=== PATIENT | female | born 1950 | race American Indian/Alaskan Native ===

== ENCOUNTER 2017-07-08 03:28 | Inpatient (IN) | payer MEDICARE, OTHER ==
--- NOTE | 2017-07-08 04:45 | Cat Scan Report ---
FINAL REPORT EXAM: CT HEAD/BRAIN WO CON HISTORY: FOUND ON FLOOR RT FACIAL DROOP TECHNIQUE: Routine axial imaging was obtained of the brain without IV contrast. There are no previous studies available for comparison. FINDINGS: There is mild generalized atrophy. There is no evidence of acute stroke or hemorrhage. There is diminished attenuation of the periventricular white matter compatible with chronic microvascular disease changes. The ventricular system is appropriate in size and is symmetric. The visualized sinuses are clear. The mastoid air cells are well pneumatized. IMPRESSION: Mild generalized volume loss with chronic ischemic white matter changes. No evidence of acute stroke or hemorrhage.
--- NOTE | 2017-07-08 04:54 | Cat Scan Report ---
FINAL REPORT EXAM: CT CERVICAL SPINE WO CON HISTORY: fall TECHNIQUE: Routine axial imaging was obtained of the cervical spine without IV contrast with sagittal and coronal reconstructions FINDINGS: There is very mild narrowing of the C6-C7 disc. The remaining disc heights and alignment appear normal. The canal size is normal. There is no evidence of fracture. The pre vertebral soft tissues and C1-C2 articulation do not show any acute changes. IMPRESSION: Very mild disc degeneration at the C6-C7 level. No acute injury.
[2017-07-08 05:03] LABS: Basophils % (Auto) 0.6 % (0.0-1.8); Eosinophils % (Auto) 0.4 % (0.0-4.3); Hematocrit 39.9 % (35.5-45.6); Hemoglobin 13.2 gm/dl (11.8-15.2); Mean Corpuscular HGB Conc 33 % (32-34); Mean Corpuscular Hemoglobin 30 pg (28-32); Mean Corpuscular Volume 89 fl (84-94); Platelet Count 201 K/mm3 (140-440); Red Blood Count 4.49 M/mm3 (3.65-5.03); Red Cell Distribution Width 13.9 % (13.2-15.2); White Blood Count 5.3 K/mm3 (4.5-11.0)
[2017-07-08] MEDS ORDERED: APRESOLINE IV ONE (05:05)
[2017-07-08] MEDS ORDERED: BABY ASPIRIN PO ONE (05:05)
[2017-07-08 05:13] LABS: INR 0.91 (0.87-1.13)
[2017-07-08 05:14] LABS: Partial Thromboplastin Time 26.3 Sec. (24.2-36.6)
[2017-07-08 05:21] LABS: Anion Gap 20 mmol/L; BUN/Creatinine Ratio 10; Blood Urea Nitrogen 9 mg/dL (9-20); Calcium 9.4 mg/dL (8.4-10.2); Carbon Dioxide 24 mmol/L (22-30); Chloride 101.7 mmol/L (98-107); Glucose 95 mg/dL (75-100); Potassium 3.2 mmol/L (3.6-5.0); Sodium 142 mmol/L (137-145)
--- NOTE | 2017-07-08 05:21 | Emergency Department Report ---
ED Neuro Deficit HPI - General Chief Complaint: Neuro Symptoms/Deficit Stated Complaint: POSSIBLE HIGH BLOOD SUGAR Time Seen by Provider: 07/08/17 04:47 Source: patient, family Mode of arrival: Wheelchair Limitations: Physical Limitation - History of Present Illness Initial Comments: Patient was found on the floor at 8 PM she did hit her head they said that she was has been slightly off with maybe weakness then around midnight she noticed no slurred speech and left arm droop with facial droop and weakness of the left leg. Patient has not been compliant with her BP meds she is following commands she is awake alert was stable airway initial blood pressure was 218/120. -: Gradual Location: left face, left arm Presenting Symptoms: Present: Weak/Paralyzed One Side Place: home - Related Data Allergies/Adverse Reactions: Allergies Allergy/AdvReac Type Severity Reaction Status Date / Time amoxicillin [From Amoxil] Allergy Unknown Verified 07/08/17 04:19 ED Review of Systems ROS: Stated complaint: POSSIBLE HIGH BLOOD SUGAR Other details as noted in HPI Comment: All other systems reviewed and negative Constitutional: denies: diaphoresis, fever, malaise Respiratory: denies: cough, orthopnea, shortness of breath, SOB with exertion, SOB at rest, stridor Cardiovascular: denies: chest pain, palpitations, dyspnea on exertion, edema, syncope Gastrointestinal: denies: abdominal pain, nausea, vomiting Musculoskeletal: denies: arthralgia Neurological: weakness Hematological/Lymphatic: denies: easy bruising ED Past Medical Hx - Past Medical History Previous Medical History?: Yes Hx Hypertension: Yes Hx Diabetes: Yes - Surgical History Past Surgical History?: No ED Neuro Physical Exam - General Limitations: Physical Limitation General appearance: alert, anxious Suspected Stroke: Yes - Head Head exam: Present: atraumatic, normocephalic - Eye Eye exam: Present: PERRL - ENT ENT exam: Present: normal exam, normal orophraynx - Neck Neck exam: Present: normal inspection. Absent: tenderness, meningismus - Respiratory Respiratory exam: Present: normal lung sounds bilaterally. Absent: respiratory distress, wheezes, rales, rhonchi, stridor, chest wall tenderness, accessory muscle use, prolonged expiratory - Cardiovascular Cardiovascular Exam: Present: regular rate, normal heart sounds. Absent: rubs, gallop - GI/Abdominal GI/Abdominal exam: Present: soft. Absent: distended, tenderness, guarding, mass , bruit, pulsatile mass - Extremities Exam Extremities exam: Present: normal inspection. Absent: pedal edema, calf tenderness - Back Exam Back exam: Present: normal inspection - Neurological Exam Neurological exam: Present: alert, motor sensory deficit - NIHSS Assessment Interval: Baseline 1a. Level of Consciousness: alert 1b. LOC Questions: answers 1 question correctly 1c. LOC Commands: performs tasks correctly 2. Best Gaze: normal 3. Visual: no visual loss 4. Facial Palsy: partial paralysis 5b. Motor Arm Right: no drift 5a. Motor Arm Left: drift 6a. Motor Leg Left: drift 6b. Motor Leg Right: no drift 7. Limb Ataxia: absent 8. Sensory: mild/moderate sensory loss 9. Best Language: no aphasia 10. Dysarthria: normal 11. Extinction/Inattention: no abnormality Total Score: 6 Stroke Severity: Moderate Stroke ED Course Vital Signs 07/08/17 04:26 Temperature 98.1 F Pulse Rate 82 Respiratory 20 Rate Blood Pressure 218/120 O2 Sat by Pulse 98 Oximetry - Lab Data Result diagrams: 07/08/17 04:45 Lab Results 07/08/17 07/08/17 Range/Units 03:57 04:45 WBC 5.3 (4.5-11.0) K/mm3 RBC 4.49 (3.65-5.03) M/mm3 Hgb 13.2 (11.8-15.2) gm/dl Hct 39.9 (35.5-45.6) % MCV 89 (84-94) fl MCH 30 (28-32) pg MCHC 33 (32-34) % RDW 13.9 (13.2-15.2) % Plt Count 201 (140-440) K/mm3 Lymph % (Auto) 18.9 (13.4-35.0) % [place] % (Auto) 5.3 (0.0-7.3) % Eos % (Auto) 0.4 (0.0-4.3) % Baso % (Auto) 0.6 (0.0-1.8) % Lymph # 1.0 L (1.2-5.4) K/mm3 [place] # 0.3 (0.0-0.8) K/mm3 Eos # 0.0 (0.0-0.4) K/mm3 Baso # 0.0 (0.0-0.1) K/mm3 Seg Neutrophils % 74.8 H (40.0-70.0) % Seg Neutrophils # 4.0 (1.8-7.7) K/mm3 POC Glucose 108 H (70-105) - EKG Data -: EKG Interpreted by Me EKG shows normal: sinus rhythm, ST-T waves (no acute ischemic changes) When compared to previous EKG there are: no significant change - Radiology Data Radiology results: report reviewed - Medical Decision Making Dr. Chawla evaluated patient in ED patient with left-sided weakness with no hemorrhage on CT. Hydralazine was given for elevated blood pressure asked was given patient will be admitted for further evaluation of CVA. The time of onset was outside the window of 3-4 hours that would possibly allow for TPA given the fact that her initial onset was approximately 8 PM on 1218. Patient will be admitted for further evaluation she does have good gag reflex at this time stable airway no chest pain and may laboratory studies are pending the oncoming hospitalist will admit the patient - Thrombolytic Inclusion/Exclusion Thrombolytic Exclusion Criteria: Onset of Symptoms Unknown, Symptom Onset > 3 Hours Critical care attestation.: If time is entered above; I have spent that time in minutes in the direct care of this critically ill patient, excluding procedure time. ED Disposition Clinical Impression: CVA (cerebral vascular accident) Disposition: OP ADMIT IP TO THIS HOSP Is pt being admited?: Yes Condition: Stable Time of Disposition: 05:37
[2017-07-08] MEDS ORDERED: TYLENOL PO PRN (05:22)
[2017-07-08] MEDS ORDERED: DULCOLAX PR PRN ×2 (05:22→08:01)
[2017-07-08] MEDS ORDERED: MILK OF MAGNESIA PO PRN ×2 (05:22→08:01)
[2017-07-08] MEDS: MORPHINE IV PRN ×3 (06:26→20:05)
--- NOTE | 2017-07-08 07:56 | History and Physical Report ---
History of Present Illness Date of examination: 07/08/17 Date of admission: 07/08/17 05:22 Chief complaint: Left-sided weakness, and slurred speech History of present illness: 66-year-old -[place] female with past medical history significant for hypertension not on any medication, abuse, marijuana abuse was presented to the emergency department for the complaints of left-sided weakness, slurred speech that started more than 4 and half hours before presentation. Patient's blood failure at presentation was 218/120. Patient was alert and oriented and able to protect her airways. Left-sided hemiplegia. No seizure episode. CT head done and negative for acute intracranial hemorrhage. Patient is tPA period. REVIEW OF SYSTEMS: GENERAL: no weight change, no fatigue, no fever HEAD: no head ache EYES: no blurry vision, no acute visual loss EARS: no hearing loss, no discharge, no earache NOSE: no stuffiness, no sneezing, no discharge MOUTH, THROAT AND NECK: no bleeding gums, no sore throat, no swollen neck CARDIAC: no palpitations, no dyspnea on exertion, no orthopnea, no PND, no edema , no chest pain RESPIRATORY: no shortness of breath, no wheeze, no cough, no sputum, no hemoptysis, no asthma GI: no decreased appetite, no nausea, no vomiting, no dysphagia, no diarrhea, no constipation, no abdominal pain URINARY: no change in frequency, no urgency, no polyuria, no hematuria, no incontinence MUSCULOSKELETAL: no muscle weakness, no pain, no joint stiffness NEUROLOGIC: As stated in the HPI HEMATOLOGIC: no anemia, no easy bruising SKIN: no rashes ENDOCRINE: no heat/cold intolerance, no polyuria, no polydipsia, no thyroid problems, no diabetes PSYCHIATRIC: no anxiety, no depression, no suicidal ideations Past History Past Medical History: hypertension Past Surgical History: hysterectomy, bowel surgery Social history: smoking (stated smoked too much cigarettes, marijuana), full code. denies: alcohol abuse, prescription drug abuse, IV drug use Family history: no significant family history Medications and Allergies Allergies Allergy/AdvReac Type Severity Reaction Status Date / Time amoxicillin [From Amoxil] Allergy Unknown Verified 07/08/17 04:19 Home Medications Medication Instructions Recorded Confirmed Last Taken Type amLODIPine [Norvasc] 10 mg PO DAILY 07/08/17 07/08/17 Unknown History Active Meds: Active Medications Acetaminophen (Tylenol) 650 mg PO Q4H PRN PRN Reason: Pain MILD(1-3)/Fever >100.5/SOSA Bisacodyl (Dulcolax) 10 mg [place] QDAY PRN PRN Reason: Constipation unrelieved by MOM Enoxaparin Sodium (Lovenox) 40 mg SUB-Q QDAY UMBERTO Dextrose/Sodium Chloride (D5ns) 1,000 mls @ 100 mls/hr IV DIRECT UMBERTO Magnesium Hydroxide (Milk Of Magnesia) 30 ml PO Q4H PRN PRN Reason: Constipation Morphine Sulfate (Morphine) 2 mg IV Q4H PRN PRN Reason: Pain, Moderate (4-6) Last Admin: 07/08/17 06:26 Dose: 2 mg Ondansetron HCl (Zofran) 4 mg IV Q8H PRN PRN Reason: N/V unrelieved by Reglan Oxycodone/Acetaminophen (Percocet 5/325) 1 tab PO Q6H PRN PRN Reason: Pain, Moderate (4-6) Exam - Physical Exam Narrative exam: Not in cardiopulmonary distress. The patient appeared well nourished and normally developed. Vital signs as documented. Head exam is unremarkable. No scleral icterus . Neck is without jugular venous distension, thyromegaly, or carotid bruits. Lungs are clear to auscultation. Cardiac exam reveals regular rate and Rhythm. First and second heart sounds normal. No murmurs, rubs or gallops. Abdominal exam reveals normal bowel sounds, no masses, no organomegaly and no aortic enlargement. Extremities left-sided hemiplegia. 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 - Constitutional Vitals: Temp Pulse Resp BP Pulse Ox 98.1 F 82 20 218/120 98 07/08/17 04:26 07/08/17 04:26 07/08/17 04:26 07/08/17 04:26 07/08/17 04:26 Results - Labs CBC & Chem 7: 07/09/17 06:55 07/09/17 06:55 Labs: Laboratory Last Values WBC 5.3 K/mm3 (4.5-11.0) 07/08/17 04:45 RBC 4.49 M/mm3 (3.65-5.03) 07/08/17 04:45 Hgb 13.2 gm/dl (11.8-15.2) 07/08/17 04:45 Hct 39.9 % (35.5-45.6) 07/08/17 04:45 MCV 89 fl (84-94) 07/08/17 04:45 MCH 30 pg (28-32) 07/08/17 04:45 MCHC 33 % (32-34) 07/08/17 04:45 RDW 13.9 % (13.2-15.2) 07/08/17 04:45 Plt Count 201 K/mm3 (140-440) 07/08/17 04:45 Lymph % (Auto) 18.9 % (13.4-35.0) 07/08/17 04:45 [place] % (Auto) 5.3 % (0.0-7.3) 07/08/17 04:45 Eos % (Auto) 0.4 % (0.0-4.3) 07/08/17 04:45 Baso % (Auto) 0.6 % (0.0-1.8) 07/08/17 04:45 Lymph # 1.0 K/mm3 (1.2-5.4) L 07/08/17 04:45 [place] # 0.3 K/mm3 (0.0-0.8) 07/08/17 04:45 Eos # 0.0 K/mm3 (0.0-0.4) 07/08/17 04:45 Baso # 0.0 K/mm3 (0.0-0.1) 07/08/17 04:45 Seg Neutrophils % 74.8 % (40.0-70.0) H 07/08/17 04:45 Seg Neutrophils # 4.0 K/mm3 (1.8-7.7) 07/08/17 04:45 PT 12.7 Sec. (12.2-14.9) 07/08/17 04:45 INR 0.91 (0.87-1.13) 07/08/17 04:45 APTT 26.3 Sec. (24.2-36.6) 07/08/17 04:45 Thrombin Time 16.4 Sec. (15.1-19.6) 07/08/17 04:45 Sodium 142 mmol/L (137-145) 07/08/17 04:45 Potassium 3.2 mmol/L (3.6-5.0) L 07/08/17 04:45 Chloride 101.7 mmol/L (98-107) 07/08/17 04:45 Carbon Dioxide 24 mmol/L (22-30) 07/08/17 04:45 Anion Gap 20 mmol/L 07/08/17 04:45 BUN 9 mg/dL (9-20) 07/08/17 04:45 Creatinine 0.9 mg/dL (0.8-1.5) 07/08/17 04:45 Estimated GFR > 60 ml/min 07/08/17 04:45 BUN/Creatinine Ratio 10 % 07/08/17 04:45 Glucose 95 mg/dL (75-100) 07/08/17 04:45 POC Glucose 108 (70-105) H 07/08/17 03:57 Hemoglobin A1c 5.3 % (4-6) 07/08/17 04:45 Calcium 9.4 mg/dL (8.4-10.2) 07/08/17 04:45 Troponin T < 0.010 ng/mL (0.00-0.029) 07/08/17 04:45 - Imaging and Cardiology CT Scan - head: report reviewed (no acute intracranial findings) MRI - head: image reviewed (right-sided acute subacute CVA) Assessment and Plan Assessment and plan: Acute CVA - Patient came more than 4hrs after symptom onset and didn't get tPA - CT head no hemorrhage, no acute intracranial findings - Bilateral carotid Doppler <50% stenosis - MRI/MRA was done MRI :Acute/subacute nonhemorrhagic infarct involving the right internal capsule posterior limb. Moderate chronic white matter microangiopathic changes. 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 -We'll do CTA for further characterization of his MRA finding - Case management consult, PT/OT consult - Patient is on statin, will start on aspirin - We will control blood pressure to below 185 /105 Hypertensive urgency - keep blood pressure below 185 and 105 Hypokalemia - Replete DVT prophylaxis - SCD, will restart his Lovenox after 48 hours Disposition -Admit to telemetry. Advance Directives: Yes Contraindication Mechanical VTE Prophylaxis: Treatment Not Indicated Reason for no VTE Prophylaxis: Medical contraindication Plan of care discussed with patient/family: Yes
[2017-07-08] MEDS ORDERED: SENOKOT PO PRN (08:01)
[2017-07-08] MEDS ORDERED: SODIUM CHLORIDE FLUSH SYRINGE 10 ML IV PRN (08:01)
[2017-07-08] MEDS ORDERED: PHENERGAN PR PRN (08:01)
[2017-07-08] MEDS ORDERED: ZOFRAN IV PRN (08:01)
[2017-07-08] MEDS ORDERED: REGLAN PO PRN (08:01)
[2017-07-08] MEDS ORDERED: APRESOLINE IV PRN (08:01)
[2017-07-08] MEDS ORDERED: PROVENTIL IH PRN (08:01)
[2017-07-08] MEDS: APRESOLINE IV PRN (08:41)
[2017-07-08] MEDS: PERCOCET 5/325 PO PRN (08:49)
[2017-07-08] MEDS: ZOFRAN IV PRN ×2 (09:16→17:47)
[2017-07-08] MEDS: LOVENOX SUB-Q SCH (09:17)
[2017-07-08] MEDS: ASPIRIN PO SCH (09:21)
[2017-07-08] MEDS: PEPCID PO SCH ×2 (09:21→21:00)
[2017-07-08] MEDS: COLACE PO SCH ×2 (09:21→21:00)
--- NOTE | 2017-07-08 13:59 | Magnetic Resonance Report ---
MRI BRAIN WITHOUT CONTRAST: 07/08/17 05:22:00 CLINICAL: Stroke. TECHNIQUE: Axial diffusion, T1, T2, FLAIR, gradient echo T2*, and sagittal T1 sequences on a 1.5 Danyelle magnet. FINDINGS: Normal ventricles and sulci. Focal restricted diffusion involves the right internal capsule posterior limb and measures approximately 1.7 x 0.9 cm. No other restricted diffusion. Moderate bilateral deep white matter and central great matter multifocal hyperintensities on FLAIR and T2. Prominent Virchow-Bharat spaces. No mass or mass effect. No hemorrhage, edema or extra-axial collection. Normal pituitary and optic chiasm. The brainstem and cerebellum are normal. Intact vascular flow voids. Normal sinuses. The orbits, and soft tissues are normal. Normal calvarium and skull base. IMPRESSION: Acute/subacute nonhemorrhagic infarct involving the right internal capsule posterior limb. Moderate chronic white matter microangiopathy.
--- NOTE | 2017-07-08 14:29 | Magnetic Resonance Report ---
MRA HEAD WITHOUT CONTRAST: 07/08/17 05:22:00 CLINICAL: Stroke. TECHNIQUE: Axial 3-D [id number] MR angiography of the [place] with review of axial source images. FINDINGS: Stenosis of the supraclinoid right ICA with poststenotic dilatation. No other significant stenosis. Symmetric blood flow in the anterior, middle and posterior cerebral arteries. Suspect an aneurysm either at the origin of the left NEON TUBE BENDER or of the basilar tip. The vertebral arteries are normal with a dominant right vertebral artery. 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 Recommend CTA head for further clarification.
--- NOTE | 2017-07-08 18:59 | Consultation ---
History of Present Illness Consult date: 07/08/17 Requesting physician: ESVIN MEEHAN Reason for Consult: New onset hypertensive styroke History of present illness: 66 year old patient with untreated hypertension, presented to the ER 07/07 because of several falls as she tried to get out of bed. Left hemiparesis weas noted and blood pressure of 201/121. CT scan in ER was negative, but MRI scan has revealed an acute rt. internal capsule CVA. She has been started on aspirin. Echocardiogram is pending and carotid dopplwers are completed. Physical therapy has been consulted. MRA has also been done. Pt. is lying comfortably in bed with left hemiplegia face, arm. and leg. Past History Past Medical History: hypertension Social history: lives with family. denies: smoking, alcohol abuse Family history: CAD, diabetes, hypertension, stroke Medications and Allergies Allergies Allergy/AdvReac Type Severity Reaction Status Date / Time amoxicillin [From Amoxil] Allergy Unknown Verified 07/08/17 04:19 Home Medications Medication Instructions Recorded Confirmed Last Taken Type amLODIPine [Norvasc] 10 mg PO DAILY 07/08/17 07/08/17 Unknown History Active Meds: Active Medications Acetaminophen (Tylenol) 650 mg PO Q4H PRN PRN Reason: Pain MILD(1-3)/Fever >100.5/SOSA Albuterol (Proventil) 2.5 mg IH Q3HRT PRN PRN Reason: Shortness Of Breath Aspirin (Aspirin) 325 mg PO QDAY [facility] Last Admin: 07/08/17 09:21 Dose: Not Given Bisacodyl (Dulcolax) 10 mg [place] QDAY PRN PRN Reason: Constipation unrelieved by MOM Docusate Sodium (Colace) 100 mg PO BID [facility] Last Admin: 07/08/17 09:21 Dose: Not Given Enoxaparin Sodium (Lovenox) 40 mg SUB-Q QDAY [facility] Last Admin: 07/08/17 09:17 Dose: 40 mg Famotidine (Pepcid) 20 mg PO BID [facility] Last Admin: 07/08/17 09:21 Dose: Not Given Hydralazine HCl (Apresoline) 10 mg IV Q4H PRN PRN Reason: Keep SBP between 160-185 mm Hg Last Admin: 07/08/17 08:41 Dose: 10 mg Dextrose/Sodium Chloride (D5ns) 1,000 mls @ 100 mls/hr IV DIRECT UMBERTO Magnesium Hydroxide (Milk Of Magnesia) 30 ml PO Q4H PRN PRN Reason: Constipation Metoclopramide HCl (Reglan) 10 mg PO Q6H PRN PRN Reason: Nausea And Vomiting Morphine Sulfate (Morphine) 2 mg IV Q4H PRN PRN Reason: Pain, Moderate (4-6) Last Admin: 07/08/17 11:29 Dose: 2 mg Ondansetron HCl (Zofran) 4 mg IV Q8H PRN PRN Reason: N/V unrelieved by Reglan Last Admin: 07/08/17 17:47 Dose: 4 mg Oxycodone/Acetaminophen (Percocet 5/325) 1 tab PO Q6H PRN PRN Reason: Pain, Moderate (4-6) Last Admin: 07/08/17 08:49 Dose: 1 tab Promethazine HCl (Phenergan) 25 mg [place] Q6H PRN PRN Reason: Nausea And Vomiting Senna (Senokot) 8.6 mg PO Q12H PRN PRN Reason: Laxative Effect Sodium Chloride (Sodium Chloride Flush Syringe 10 Ml) 10 ml IV PRN PRN PRN Reason: LINE FLUSH Zolpidem Tartrate (Ambien) 5 mg PO QHS PRN PRN Reason: Insomnia Review of Systems Constitutional: no weight loss, no weight gain, no fever Ears, nose, mouth and throat: no tinnitis, no decreased hearing Cardiovascular: no chest pain, no orthopnea, no palpitations, no rapid/ irregular heart beat, no edema, no syncope, no shortness of breath Respiratory: no cough, no cough with sputum, no shortness of breath, no congestion Gastrointestinal: no abdominal pain, no nausea, no vomiting, no diarrhea, no constipation Genitourinary Female: no dysuria, no urinary frequency, no urgency, no difficulty voiding Physical Examination - Vital Signs Vital Signs: Vital Signs Temp Pulse Resp BP Pulse Ox 98.1 F 82 20 218/120 98 07/08/17 04:26 07/08/17 04:26 07/08/17 04:26 07/08/17 04:26 07/08/17 04:26 - Constitutional General appearance: comfortable - EENT EENT: Present: PERRL, mucous membranes moist, hearing intact, vision intact - Respiratory Respiratory: Present: lungs clear, normal breath sounds - Cardiovascular Cardiovascular: Present: regular rate, normal S1, normal S2 Extremities: Present: no peripheral edema bilatateraly, no clubbing, cyanosis - Gastrointestinal Gastrointestinal: Present: soft, non-tender - Neurologic Cranial nerve examination: PERRL, EOMI, V1/V2/V3 grossly intact, tongue midline , intact shoulder shrug, facial droop Speech examination: other (severe dysarthria) Sensorimotor examination: hemiparesis Motor examination - right side: 5/5: biceps, triceps, wrist flexion, wrist extension, hip flexors, knee extensors, dorsiflexion, toe extension (EHL), plantarflexion Motor examination - left side: 5: biceps, triceps, wrist flexion, wrist extension, hip flexors, knee extensors, dorsiflexion, toe extension (EHL), plantarflexion Detailed sensory examination: intact, light touch, pain Cerebellar examination: other (3+ reflexes on the left, trace on right.) - Musculoskeletal Musculoskeletal: Present: no fluid collection, no pain Results - Laboratory Findings CBC and BMP: 07/09/17 06:55 07/09/17 06:55 Abnormal Lab Findings: Abnormal Labs 07/08/17 07/08/17 07/08/17 03:57 04:26 04:45 Lymph # 1.0 L Seg Neutrophils % 74.8 H Potassium POC Glucose 108 H 109 H 07/08/17 04:45 Lymph # Seg Neutrophils % Potassium 3.2 L POC Glucose Assessment and Plan 66 year old female with history of hypertension, untreated, presents with an acute left internal capsule CVA. Work-up has been completed and shows stenosis of the rt. supraclinoid carotid and a left PASSENGER INTERLINE CLERK aneurysm. Plan - CT angiogram ASA has been started. hypertension control fasting lipid panel Speech therapy consult for swallowing evaluation.
[2017-07-08] MEDS: D5NS 1,000 ML IV SCH (23:11)
[2017-07-09] MEDS: MORPHINE IV PRN ×3 (00:28→20:21)
[2017-07-09] MEDS: APRESOLINE IV PRN ×2 (06:11→13:28)
[2017-07-09] MEDS: ZOFRAN IV PRN ×3 (06:40→20:21)
[2017-07-09 07:11] LABS: Basophils % (Auto) 0.6 % (0.0-1.8); Eosinophils % (Auto) 0.4 % (0.0-4.3); Hematocrit 39.5 % (30.3-42.9); Hemoglobin 12.8 gm/dl (10.1-14.3); Mean Corpuscular HGB Conc 32 % (30-34); Mean Corpuscular Hemoglobin 29 pg (28-32); Mean Corpuscular Volume 90 fl (79-97); Platelet Count 200 K/mm3 (140-440); Red Blood Count 4.41 M/mm3 (3.65-5.03); Red Cell Distribution Width 14.4 % (13.2-15.2); White Blood Count 4.5 K/mm3 (4.5-11.0)
[2017-07-09 07:35] LABS: Anion Gap 20 mmol/L; BUN/Creatinine Ratio 9; Blood Urea Nitrogen 7 mg/dL (7-17); Calcium 9.2 mg/dL (8.4-10.2); Carbon Dioxide 24 mmol/L (22-30); Chloride 101.8 mmol/L (98-107); Cholesterol 235 mg/dL (50-199); Glucose 146 mg/dL (65-100); HDL Cholesterol 84 mg/dL (40-59); LDL Cholesterol,Direct 138 mg/dL (50-130); Sodium 143 mmol/L (137-145); Triglycerides 69 mg/dL (2-149)
[2017-07-09 07:43] LABS: Potassium 2.8 mmol/L (3.6-5.0)
[2017-07-09] MEDS ORDERED: K-DUR PO ONE (09:31)
[2017-07-09] MEDS: NORVASC PO SCH (10:19)
[2017-07-09] MEDS: LOVENOX SUB-Q SCH (10:20)
[2017-07-09] MEDS: PEPCID PO SCH ×2 (10:21→21:57)
[2017-07-09] MEDS: PERCOCET 5/325 PO PRN (10:21)
[2017-07-09] MEDS: COLACE PO SCH ×2 (10:21→21:57)
[2017-07-09] MEDS: ASPIRIN PO SCH (13:27)
[2017-07-09] MEDS: APRESOLINE PO SCH ×2 (13:27→20:12)
[2017-07-09] MEDS: D5NS 1,000 ML IV SCH (14:28)
--- NOTE | 2017-07-09 15:13 | Progress Note ---
Assessment and Plan Patient with stenosis of the carotid, supraclinoid, basilar tip or PUBLIC HEALTH REPRESENTATIVE aneurysm. Awaiting CT results and swallowing study. Plan - BP is still elevated. Physical therapy to work with patient. Swallowing evaluation./ Subjective Date of service: 07/09/17 Principal diagnosis: Right Internal Capsule Stroke Interval history: The patient is resting comfortably after completing CT angio. She is having difficulty taking her oral medications because of nausea. O - Objective - Vital Sign Vital Signs - 12hr 07/09/17 07/09/17 07/09/17 06:04 08:53 10:00 Temperature 98.9 F Pulse Rate 67 83 Respiratory 20 18 Rate Blood Pressure 187/94 Blood Pressure 192/87 [Right] O2 Sat by Pulse 99 98 Oximetry 07/09/17 07/09/17 10:19 13:28 Temperature Pulse Rate Respiratory Rate Blood Pressure 187/94 188/112 Blood Pressure [Right] O2 Sat by Pulse Oximetry - General Apperance Constitutional: comfortable - EENT EENT: PERRL, mucous membranes moist, hearing intact, vision intact - Respiratory Respiratory: lungs clear, normal breath sounds, no respiratory distress - Cardiovascular Cardiovascular: regular rate, normal S1, normal S2 Extremities: no peripheral edema bilat, no clubbing, cyanosis - Gastrointestinal Gastrointestinal: soft, non-tender - Neurologic Cranial nerve examination: PERRL, EOMI, V1/V2/V3 grossly intact, tongue midline , intact shoulder shrug, facial droop Speech examination: intact, other (dysarthria) Motor examination - right side: 5/5: biceps, triceps, wrist flexion, wrist extension, hip flexors, knee extensors, dorsiflexion, toe extension (EHL), plantarflexion Motor examination - left side: 1/5: biceps (left hemiplegia), triceps, wrist flexion, wrist extension, hip flexors, knee extensors, dorsiflexion, toe extension (EHL), plantarflexion Detailed sensory examination: intact, light touch, pain Reflexes: 2+: ankle (Brisk reflexes on left.), bicep, knee, tricep - Laboratory Findings CBC and BMP: 07/09/17 06:55 07/09/17 06:55 Abnormal Lab Findings: Abnormal Labs 07/08/17 07/08/17 07/08/17 03:57 04:26 04:45 [place] % (Auto) Lymph # 1.0 L Seg Neutrophils % 74.8 H Potassium Glucose POC Glucose 108 H 109 H Cholesterol LDL Cholesterol Direct HDL Cholesterol 07/08/17 07/08/17 07/09/17 04:45 22:26 06:55 [place] % (Auto) 7.5 H Lymph # Seg Neutrophils % Potassium 3.2 L Glucose POC Glucose 133 H Cholesterol LDL Cholesterol Direct HDL Cholesterol 07/09/17 06:55 [place] % (Auto) Lymph # Seg Neutrophils % Potassium 2.8 L* Glucose 146 H POC Glucose Cholesterol 235 H LDL Cholesterol Direct 138 H HDL Cholesterol 84 H
--- NOTE | 2017-07-09 16:36 | Cat Scan Report ---
FINAL REPORT EXAM: CT ANGIO NECK HISTORY: acute rt. internal capsule stroke TECHNIQUE: Carotids/neck CT angiography with IV contrast 2D and 3D image reformation PRIORS: Cervical spine CT 07/08/2017 FINDINGS: Pulmonary emphysema and scattered pneumatoceles in both upper lobes. Slight calcified atherosclerotic plaque in the left carotid bifurcation. No evidence of left carotid stenosis. Developmental variation with dominant right vertebral artery. No definite caliber abnormality in the vertebral arteries. Slightly more prominent moderate calcified atherosclerotic plaque in the right carotid bifurcation. This is associated with approximately 30 % diameter carotid bifurcation stenosis. No evidence of stenosis in right ICA and CCA. There is approximately 45 % diameter stenosis in the proximal left subclavian artery. IMPRESSION: Bilateral upper lobe pulmonary emphysema with scattered pneumatoceles Bilateral calcified atherosclerotic plaque in the carotid bifurcations Approximately 30 % diameter carotid bifurcation stenosis on the right. 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
--- NOTE | 2017-07-09 16:48 | Cat Scan Report ---
FINAL REPORT EXAM: CT ANGIO HEAD HISTORY: acute cva. 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 Developmental variation with dominant right vertebral artery. No definite evidence of stenosis or occlusion. There is nonspecific fusiform aneurysmal enlargement of the distal right ICA involving a 12 mm long segment in the supraclinoid region. Maximum diameter is 6.8 mm. This is located just prior to the M1 segment of the right MCA. 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
--- NOTE | 2017-07-09 16:55 | Progress Note ---
Assessment and Plan Assessment and plan: Acute CVA - Patient came more than 4hrs after symptom onset and didn't get tPA - CT head no hemorrhage, no acute intracranial findings - Bilateral carotid Doppler <50% stenosis - MRI/MRA was done MRI :Acute/subacute nonhemorrhagic infarct involving the right internal capsule posterior limb. Moderate chronic white matter microangiopathic changes. MRA A possible basilar tip on proximal left ACQUISITION ASSOCIATE aneurysm and stenosis of the right supraclinoid ICA with poststenotic dilatation. -We'll do CTA for further characterization of his MRA finding - Case management consult, PT/OT consult - Patient is on statin, will start on aspirin - We will control blood pressure to below 185 /105 Hypertensive urgency - keep blood pressure below 185 and 105 - Patient is on amlodipine, blood pressure is not controlled, I'm going to add chlorthalidone Hypokalemia - Replete Patient was evaluated by speech - Recommended mechanical soft diet Tobacco abuse - Consulted for more than 10 minutes DVT prophylaxis - Patient is on Lovenox Disposition -Continue inpatient care - Need PT evaluation - Patient admitted acute/subacute rehab History Interval history: Patient was seen and evaluated this morning, left-sided hemiplegia. No chest pain. Hospitalist Physical - Physical exam Narrative exam: Not in cardiopulmonary distress. The patient appeared well nourished and normally developed. Vital signs as documented. Head exam is unremarkable. No scleral icterus . Neck is without jugular venous distension, thyromegaly, or carotid bruits. Lungs are clear to auscultation. Cardiac exam reveals regular rate and Rhythm. First and second heart sounds normal. No murmurs, rubs or gallops. Abdominal exam reveals normal bowel sounds, no masses, no organomegaly and no aortic enlargement. Extremities left-sided hemiplegia. 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 - Constitutional Vitals: Temp Pulse Resp BP Pulse Ox 98.9 F 84 18 188/112 98 07/09/17 06:04 07/09/17 10:00 07/09/17 10:00 07/09/17 13:28 07/09/17 08:53 Results - Labs CBC & Chem 7: 07/09/17 06:55 07/09/17 06:55 Labs: Laboratory Last Values WBC 4.5 K/mm3 (4.5-11.0) 07/09/17 06:55 RBC 4.41 M/mm3 (3.65-5.03) 07/09/17 06:55 Hgb 12.8 gm/dl (10.1-14.3) 07/09/17 06:55 Hct 39.5 % (30.3-42.9) 07/09/17 06:55 MCV 90 fl (79-97) 07/09/17 06:55 MCH 29 pg (28-32) 07/09/17 06:55 MCHC 32 % (30-34) 07/09/17 06:55 RDW 14.4 % (13.2-15.2) 07/09/17 06:55 Plt Count 200 K/mm3 (140-440) 07/09/17 06:55 Lymph % (Auto) 32.3 % (13.4-35.0) 07/09/17 06:55 [place] % (Auto) 7.5 % (0.0-7.3) H 07/09/17 06:55 Eos % (Auto) 0.4 % (0.0-4.3) 07/09/17 06:55 Baso % (Auto) 0.6 % (0.0-1.8) 07/09/17 06:55 Lymph # 1.5 K/mm3 (1.2-5.4) 07/09/17 06:55 [place] # 0.3 K/mm3 (0.0-0.8) 07/09/17 06:55 Eos # 0.0 K/mm3 (0.0-0.4) 07/09/17 06:55 Baso # 0.0 K/mm3 (0.0-0.1) 07/09/17 06:55 Seg Neutrophils % 59.2 % (40.0-70.0) 07/09/17 06:55 Seg Neutrophils # 2.7 K/mm3 (1.8-7.7) 07/09/17 06:55 PT 12.7 Sec. (12.2-14.9) 07/08/17 04:45 INR 0.91 (0.87-1.13) 07/08/17 04:45 APTT 26.3 Sec. (24.2-36.6) 07/08/17 04:45 Thrombin Time 16.4 Sec. (15.1-19.6) 07/08/17 04:45 Sodium 143 mmol/L (137-145) 07/09/17 06:55 Potassium 2.8 mmol/L (3.6-5.0) L* 07/09/17 06:55 Chloride 101.8 mmol/L (98-107) 07/09/17 06:55 Carbon Dioxide 24 mmol/L (22-30) 07/09/17 06:55 Anion Gap 20 mmol/L 07/09/17 06:55 BUN 7 mg/dL (7-17) 07/09/17 06:55 Creatinine 0.8 mg/dL (0.7-1.2) 07/09/17 06:55 Estimated GFR > 60 ml/min 07/09/17 06:55 BUN/Creatinine Ratio 9 % 07/09/17 06:55 Glucose 146 mg/dL (65-100) H 07/09/17 06:55 POC Glucose 133 (70-105) H 07/08/17 22:26 Hemoglobin A1c 5.3 % (4-6) 07/08/17 04:45 Calcium 9.2 mg/dL (8.4-10.2) 07/09/17 06:55 Troponin T < 0.010 ng/mL (0.00-0.029) 07/08/17 04:45 Triglycerides 69 mg/dL (2-149) 07/09/17 06:55 Cholesterol 235 mg/dL (50-199) H 07/09/17 06:55 LDL Cholesterol Direct 138 mg/dL (50-130) H 07/09/17 06:55 HDL Cholesterol 84 mg/dL (40-59) H 07/09/17 06:55 Cholesterol/HDL Ratio 2.79 % 07/09/17 06:55 Hypokalemia
[2017-07-09] MEDS ORDERED: HABITROL TD ONE (17:42)
[2017-07-09] MEDS: PLAVIX PO SCH ×2 (18:31→18:34)
[2017-07-09 18:50] LABS: Anion Gap 22 mmol/L; BUN/Creatinine Ratio 9; Blood Urea Nitrogen 7 mg/dL (7-17); Calcium 9.3 mg/dL (8.4-10.2); Carbon Dioxide 26 mmol/L (22-30); Chloride 99.3 mmol/L (98-107); Glucose 121 mg/dL (65-100); Potassium 3.2 mmol/L (3.6-5.0); Sodium 144 mmol/L (137-145)
[2017-07-09] MEDS: AMBIEN PO PRN (21:57)
[2017-07-10] MEDS: D5NS 1,000 ML IV SCH ×2 (04:55→20:12)
[2017-07-10] MEDS: MORPHINE IV PRN ×2 (05:35→09:41)
[2017-07-10] MEDS: ZOFRAN IV PRN ×3 (05:38→20:12)
[2017-07-10 07:33] LABS: Anion Gap 17 mmol/L; BUN/Creatinine Ratio 8; Blood Urea Nitrogen 7 mg/dL (7-17); Carbon Dioxide 26 mmol/L (22-30); Chloride 105.8 mmol/L (98-107); Glucose 147 mg/dL (65-100); Sodium 146 mmol/L (137-145)
[2017-07-10] MEDS ORDERED: K-DUR PO ONE (09:00)
[2017-07-10] MEDS: APRESOLINE PO SCH ×3 (09:16→20:16)
[2017-07-10] MEDS ORDERED: ROBITUSSIN AC PO PRN (09:50)
[2017-07-10 12:47] LABS: Anion Gap 18 mmol/L; BUN/Creatinine Ratio 9; Blood Urea Nitrogen 7 mg/dL (7-17); Calcium 9.1 mg/dL (8.4-10.2); Carbon Dioxide 26 mmol/L (22-30); Chloride 105.6 mmol/L (98-107); Glucose 149 mg/dL (65-100); Sodium 147 mmol/L (137-145)
[2017-07-10] MEDS: APRESOLINE IV PRN (13:45)
[2017-07-10] MEDS: ASPIRIN PO SCH (13:57)
[2017-07-10] MEDS: COLACE PO SCH ×2 (13:57→22:28)
--- NOTE | 2017-07-10 17:04 | Progress Note ---
Assessment and Plan This 66 year old female sustained a lacunar infarct in the rt. internal capsule , leaving her with left hemiparesis. She is motivated to proceed with physical therapy. 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 It will be critical for her blood pressure to be controlled. Plan - [facility] rehab Subjective Principal diagnosis: Right Internal Capsule Stroke Interval history: Patient feels well this p.m. Speech recommends pureed diet following swallowing test. Patient is physically moving her paretic side in anticipation of therapy. Objective - Vital Sign Vital Signs - 12hr 07/10/17 07/10/17 07/10/17 08:37 10:00 13:45 Temperature 98.9 F Pulse Rate 101 H Pulse Rate [ 99 H Left Radial] Pulse Rate [ 99 H Right Radial] Respiratory 20 18 Rate Blood Pressure 204/110 O2 Sat by Pulse 99 Oximetry - General Apperance Constitutional: comfortable - EENT EENT: PERRL, mucous membranes moist, hearing intact, vision intact - Respiratory Respiratory: lungs clear - Cardiovascular Extremities: no peripheral edema bilat, no clubbing, cyanosis, no inflammation - Gastrointestinal Gastrointestinal: soft, non-tender - Neurologic Cranial nerve examination: PERRL, EOMI, V1/V2/V3 grossly intact, tongue midline , intact shoulder shrug, facial droop Speech examination: other (dysarthria secondasry to severe facial weakness.) Detailed motor examination: grossly full strength in, full strength in all yulia - Laboratory Findings CBC and BMP: 07/09/17 06:55 07/10/17 11:53 Abnormal Lab Findings: Abnormal Labs 07/08/17 07/08/17 07/08/17 03:57 04:26 04:45 [place] % (Auto) Lymph # 1.0 L Seg Neutrophils % 74.8 H Sodium Potassium Glucose POC Glucose 108 H 109 H Cholesterol LDL Cholesterol Direct HDL Cholesterol 07/08/17 07/08/17 07/09/17 04:45 22:26 06:55 [place] % (Auto) 7.5 H Lymph # Seg Neutrophils % Sodium Potassium 3.2 L Glucose POC Glucose 133 H Cholesterol LDL Cholesterol Direct HDL Cholesterol 07/09/17 07/09/17 07/09/17 06:55 09:01 11:55 [place] % (Auto) Lymph # Seg Neutrophils % Sodium Potassium 2.8 L* Glucose 146 H POC Glucose 112 H 119 H Cholesterol 235 H LDL Cholesterol Direct 138 H HDL Cholesterol 84 H 07/09/17 07/09/17 07/09/17 16:43 17:33 21:28 [place] % (Auto) Lymph # Seg Neutrophils % Sodium Potassium 3.2 L Glucose 121 H POC Glucose 124 H 184 H Cholesterol LDL Cholesterol Direct HDL Cholesterol 07/10/17 07/10/17 06:44 11:53 [place] % (Auto) Lymph # Seg Neutrophils % Sodium 146 H 147 H Potassium 3.0 L 3.0 L Glucose 147 H 149 H POC Glucose Cholesterol LDL Cholesterol Direct HDL Cholesterol
--- NOTE | 2017-07-10 17:54 | Progress Note ---
Assessment and Plan Assessment and plan: Acute CVA - Patient came more than 4hrs after symptom onset and didn't get tPA - CT head no hemorrhage, no acute intracranial findings - Bilateral carotid Doppler <50% stenosis - MRI/MRA was done MRI :Acute/subacute nonhemorrhagic infarct involving the right internal capsule posterior limb. Moderate chronic white matter microangiopathic changes. MRA A possible basilar tip on proximal left TRANSFER COORDINATOR aneurysm and stenosis of the right supraclinoid ICA with poststenotic dilatation. -We'll do CTA for further characterization of his MRA finding - Case management consult, PT/OT consult - Patient is on statin, will start on aspirin - We will control blood pressure to below 185 /105 Hypertensive urgency - keep blood pressure below 185 and 105 - Patient is on amlodipine, blood pressure is not controlled, I'm going to add chlorthalidone Hypokalemia - Replete Patient was evaluated by speech - Recommended mechanical soft diet Tobacco abuse - Consulted for more than 10 minutes DVT prophylaxis - Patient is on Lovenox Disposition -Continue inpatient care - Need PT evaluation - Patient admitted acute/subacute rehab History Interval history: Patient was seen and evaluated this morning, left-sided hemiplegia. No chest pain. Hospitalist Physical - Physical exam Narrative exam: Not in cardiopulmonary distress. The patient appeared well nourished and normally developed. Vital signs as documented. Head exam is unremarkable. No scleral icterus . Neck is without jugular venous distension, thyromegaly, or carotid bruits. Lungs are clear to auscultation. Cardiac exam reveals regular rate and Rhythm. First and second heart sounds normal. No murmurs, rubs or gallops. Abdominal exam reveals normal bowel sounds, no masses, no organomegaly and no aortic enlargement. Extremities left-sided hemiplegia. 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 - Constitutional Vitals: Temp Pulse Resp BP Pulse Ox 98.9 F 101 H 18 204/110 99 07/10/17 08:37 07/10/17 13:45 07/10/17 10:00 07/10/17 13:45 07/10/17 10:00 Results - Labs CBC & Chem 7: 07/09/17 06:55 07/10/17 11:53 Labs: Laboratory Last Values WBC 4.5 K/mm3 (4.5-11.0) 07/09/17 06:55 RBC 4.41 M/mm3 (3.65-5.03) 07/09/17 06:55 Hgb 12.8 gm/dl (10.1-14.3) 07/09/17 06:55 Hct 39.5 % (30.3-42.9) 07/09/17 06:55 MCV 90 fl (79-97) 07/09/17 06:55 MCH 29 pg (28-32) 07/09/17 06:55 MCHC 32 % (30-34) 07/09/17 06:55 RDW 14.4 % (13.2-15.2) 07/09/17 06:55 Plt Count 200 K/mm3 (140-440) 07/09/17 06:55 Lymph % (Auto) 32.3 % (13.4-35.0) 07/09/17 06:55 [place] % (Auto) 7.5 % (0.0-7.3) H 07/09/17 06:55 Eos % (Auto) 0.4 % (0.0-4.3) 07/09/17 06:55 Baso % (Auto) 0.6 % (0.0-1.8) 07/09/17 06:55 Lymph # 1.5 K/mm3 (1.2-5.4) 07/09/17 06:55 [place] # 0.3 K/mm3 (0.0-0.8) 07/09/17 06:55 Eos # 0.0 K/mm3 (0.0-0.4) 07/09/17 06:55 Baso # 0.0 K/mm3 (0.0-0.1) 07/09/17 06:55 Seg Neutrophils % 59.2 % (40.0-70.0) 07/09/17 06:55 Seg Neutrophils # 2.7 K/mm3 (1.8-7.7) 07/09/17 06:55 PT 12.7 Sec. (12.2-14.9) 07/08/17 04:45 INR 0.91 (0.87-1.13) 07/08/17 04:45 APTT 26.3 Sec. (24.2-36.6) 07/08/17 04:45 Thrombin Time 16.4 Sec. (15.1-19.6) 07/08/17 04:45 Sodium 147 mmol/L (137-145) H 07/10/17 11:53 Potassium 3.0 mmol/L (3.6-5.0) L 07/10/17 11:53 Chloride 105.6 mmol/L (98-107) 07/10/17 11:53 Carbon Dioxide 26 mmol/L (22-30) 07/10/17 11:53 Anion Gap 18 mmol/L 07/10/17 11:53 BUN 7 mg/dL (7-17) 07/10/17 11:53 Creatinine 0.8 mg/dL (0.7-1.2) 07/10/17 11:53 Estimated GFR > 60 ml/min 07/10/17 11:53 BUN/Creatinine Ratio 9 % 07/10/17 11:53 Glucose 149 mg/dL (65-100) H 07/10/17 11:53 POC Glucose 184 (70-105) H 07/09/17 21:28 Hemoglobin A1c 5.3 % (4-6) 07/08/17 04:45 Calcium 9.1 mg/dL (8.4-10.2) 07/10/17 11:53 Troponin T < 0.010 ng/mL (0.00-0.029) 07/08/17 04:45 Triglycerides 69 mg/dL (2-149) 07/09/17 06:55 Cholesterol 235 mg/dL (50-199) H 07/09/17 06:55 LDL Cholesterol Direct 138 mg/dL (50-130) H 07/09/17 06:55 HDL Cholesterol 84 mg/dL (40-59) H 07/09/17 06:55 Cholesterol/HDL Ratio 2.79 % 07/09/17 06:55
[2017-07-10] MEDS: LOVENOX SUB-Q SCH (18:44)
[2017-07-10] MEDS: PLAVIX PO SCH (18:45)
[2017-07-10] MEDS: PEPCID PO SCH ×2 (18:46→21:56)
[2017-07-10] MEDS: NORVASC PO SCH (18:46)
[2017-07-10] MEDS: PERCOCET 5/325 PO PRN (20:16)
[2017-07-10] MEDS: POTASSIUM CHLORIDE FEEDTUBE SCH (20:16)
[2017-07-11] MEDS: AMBIEN PO PRN ×2 (00:28→21:28)
[2017-07-11 05:54] LABS: Basophils % (Auto) 0.8 % (0.0-1.8); Eosinophils % (Auto) 0.7 % (0.0-4.3); Hematocrit 37.7 % (30.3-42.9); Hemoglobin 12.5 gm/dl (10.1-14.3); Mean Corpuscular HGB Conc 33 % (30-34); Mean Corpuscular Hemoglobin 30 pg (28-32); Mean Corpuscular Volume 91 fl (79-97); Platelet Count 182 K/mm3 (140-440); Red Blood Count 4.15 M/mm3 (3.65-5.03); Red Cell Distribution Width 14.2 % (13.2-15.2); White Blood Count 6.5 K/mm3 (4.5-11.0)
[2017-07-11 06:08] LABS: Anion Gap 18 mmol/L; BUN/Creatinine Ratio 8; Blood Urea Nitrogen 6 mg/dL (7-17); Calcium 9.3 mg/dL (8.4-10.2); Carbon Dioxide 25 mmol/L (22-30); Chloride 103.8 mmol/L (98-107); Glucose 117 mg/dL (65-100); Potassium 3.3 mmol/L (3.6-5.0); Sodium 143 mmol/L (137-145)
[2017-07-11] MEDS: PERCOCET 5/325 PO PRN (08:22)
[2017-07-11] MEDS: ZOFRAN IV PRN ×2 (08:22→21:54)
[2017-07-11] MEDS: HCTZ PO SCH ×2 (10:00→12:31)
[2017-07-11] MEDS ORDERED: PROVENTIL IH PRN (10:05)
[2017-07-11] MEDS: LOVENOX SUB-Q SCH (12:30)
[2017-07-11] MEDS: ASPIRIN PO SCH (12:30)
[2017-07-11] MEDS: PLAVIX PO SCH (12:30)
[2017-07-11] MEDS: NORVASC PO SCH (12:31)
[2017-07-11] MEDS: PEPCID PO SCH ×2 (12:31→21:29)
[2017-07-11] MEDS: APRESOLINE PO SCH ×3 (12:31→21:28)
[2017-07-11] MEDS: COLACE PO SCH ×2 (12:31→21:29)
[2017-07-11] MEDS: POTASSIUM CHLORIDE FEEDTUBE SCH (12:31)
--- NOTE | 2017-07-11 13:48 | Progress Note ---
Assessment and Plan 66 year old female with recent lacunar infarction, right internal capsule. She is prepared for rehab. Blood pressure is coming down nicely. Plan - Continue aspirin proceed with rehab. Subjective Date of service: 07/11/17 Principal diagnosis: Right Internal Capsule Stroke Interval history: Feeling well, resting comfortably. Awaiting physical therapy Objective - Vital Sign Vital Signs - 12hr 07/11/17 07/11/17 07/11/17 04:50 08:04 08:05 Temperature 98.4 F 98.5 F Pulse Rate 103 H 93 H 93 H Respiratory 20 16 Rate Blood Pressure 144/86 174/91 Blood Pressure [Right] O2 Sat by Pulse 97 95 97 Oximetry 07/11/17 07/11/17 07/11/17 10:00 10:03 12:56 Temperature 98.9 F Pulse Rate 96 H Respiratory 18 Rate Blood Pressure Blood Pressure 161/98 [Right] O2 Sat by Pulse 99 99 100 Oximetry - General Apperance Constitutional: comfortable - EENT EENT: PERRL, mucous membranes moist, hearing intact, vision intact - Cardiovascular Extremities: no peripheral edema bilat, no clubbing, cyanosis, no inflammation - Neurologic Cranial nerve examination: PERRL, EOMI, V1/V2/V3 grossly intact, tongue midline , intact shoulder shrug, facial droop Speech examination: intact Detailed motor examination: other (full strength on the right. Left remains plegic. Maybe some proximal movement in left lower extremity.) Detailed sensory examination: intact, light touch, pain Reflexes: 1+: ankle, bicep, knee, tricep - Psychiatric Psychiatric: mood/affect appropriate, cooperative - Laboratory Findings CBC and BMP: 07/11/17 05:25 07/11/17 05:25 Abnormal Lab Findings: Abnormal Labs 07/08/17 07/08/17 07/08/17 03:57 04:26 04:45 [place] % (Auto) Lymph # 1.0 L Seg Neutrophils % 74.8 H Sodium Potassium BUN Glucose POC Glucose 108 H 109 H Cholesterol LDL Cholesterol Direct HDL Cholesterol 07/08/17 07/08/17 07/09/17 04:45 22:26 06:55 [place] % (Auto) 7.5 H Lymph # Seg Neutrophils % Sodium Potassium 3.2 L BUN Glucose POC Glucose 133 H Cholesterol LDL Cholesterol Direct HDL Cholesterol 07/09/17 07/09/17 07/09/17 06:55 09:01 11:55 [place] % (Auto) Lymph # Seg Neutrophils % Sodium Potassium 2.8 L* BUN Glucose 146 H POC Glucose 112 H 119 H Cholesterol 235 H LDL Cholesterol Direct 138 H HDL Cholesterol 84 H 07/09/17 07/09/17 07/09/17 16:43 17:33 21:28 [place] % (Auto) Lymph # Seg Neutrophils % Sodium Potassium 3.2 L BUN Glucose 121 H POC Glucose 124 H 184 H Cholesterol LDL Cholesterol Direct HDL Cholesterol 07/10/17 07/10/17 07/11/17 06:44 11:53 05:25 [place] % (Auto) 8.6 H Lymph # Seg Neutrophils % Sodium 146 H 147 H Potassium 3.0 L 3.0 L BUN Glucose 147 H 149 H POC Glucose Cholesterol LDL Cholesterol Direct HDL Cholesterol 07/11/17 07/11/17 07/11/17 05:25 08:12 12:27 [place] % (Auto) Lymph # Seg Neutrophils % Sodium Potassium 3.3 L BUN 6 L Glucose 117 H POC Glucose 121 H 115 H Cholesterol LDL Cholesterol Direct HDL Cholesterol
--- NOTE | 2017-07-11 14:37 | Progress Note ---
Assessment and Plan Assessment and plan: Acute CVA - Patient came more than 4hrs after symptom onset and didn't get tPA - CT head no hemorrhage, no acute intracranial findings - Bilateral carotid Doppler <50% stenosis - MRI/MRA was done MRI :Acute/subacute nonhemorrhagic infarct involving the right internal capsule posterior limb. Moderate chronic white matter microangiopathic changes. 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 - Case management consult, PT/OT consult - Patient is on statin, will start on aspirin and plavix - We will control blood pressure - Neuro consult appreciated Hypertensive urgency - add clonidine today Hypokalemia - On potassium 40MEQ daily Patient was evaluated by speech - Recommended mechanical soft diet Tobacco abuse - Consulted for more than 10 minutes DVT prophylaxis - Patient is on Lovenox Disposition -Continue inpatient care -Patient pending acute rehab placement. History Interval history: Patient was seen and evaluated this morning, left-sided hemiplegia. No chest pain. Hospitalist Physical - Physical exam Narrative exam: Not in cardiopulmonary distress. The patient appeared well nourished and normally developed. Vital signs as documented. Head exam is unremarkable. No scleral icterus . Neck is without jugular venous distension, thyromegaly, or carotid bruits. Lungs are clear to auscultation. Cardiac exam reveals regular rate and Rhythm. First and second heart sounds normal. No murmurs, rubs or gallops. Abdominal exam reveals normal bowel sounds, no masses, no organomegaly and no aortic enlargement. Extremities left-sided hemiplegia. 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 - Constitutional Vitals: Temp Pulse Resp BP Pulse Ox 98.9 F 96 H 18 161/98 100 07/11/17 12:56 07/11/17 12:56 07/11/17 12:56 07/11/17 12:56 07/11/17 12:56 Results - Labs CBC & Chem 7: 07/11/17 05:25 07/11/17 05:25 Labs: Laboratory Last Values WBC 6.5 K/mm3 (4.5-11.0) 07/11/17 05:25 RBC 4.15 M/mm3 (3.65-5.03) 07/11/17 05:25 Hgb 12.5 gm/dl (10.1-14.3) 07/11/17 05:25 Hct 37.7 % (30.3-42.9) 07/11/17 05:25 MCV 91 fl (79-97) 07/11/17 05:25 MCH 30 pg (28-32) 07/11/17 05:25 MCHC 33 % (30-34) 07/11/17 05:25 RDW 14.2 % (13.2-15.2) 07/11/17 05:25 Plt Count 182 K/mm3 (140-440) 07/11/17 05:25 Lymph % (Auto) 31.0 % (13.4-35.0) 07/11/17 05:25 [place] % (Auto) 8.6 % (0.0-7.3) H 07/11/17 05:25 Eos % (Auto) 0.7 % (0.0-4.3) 07/11/17 05:25 Baso % (Auto) 0.8 % (0.0-1.8) 07/11/17 05:25 Lymph # 2.0 K/mm3 (1.2-5.4) 07/11/17 05:25 [place] # 0.6 K/mm3 (0.0-0.8) 07/11/17 05:25 Eos # 0.0 K/mm3 (0.0-0.4) 07/11/17 05:25 Baso # 0.1 K/mm3 (0.0-0.1) 07/11/17 05:25 Seg Neutrophils % 58.9 % (40.0-70.0) 07/11/17 05:25 Seg Neutrophils # 3.8 K/mm3 (1.8-7.7) 07/11/17 05:25 PT 12.7 Sec. (12.2-14.9) 07/08/17 04:45 INR 0.91 (0.87-1.13) 07/08/17 04:45 APTT 26.3 Sec. (24.2-36.6) 07/08/17 04:45 Thrombin Time 16.4 Sec. (15.1-19.6) 07/08/17 04:45 Sodium 143 mmol/L (137-145) 07/11/17 05:25 Potassium 3.3 mmol/L (3.6-5.0) L 07/11/17 05:25 Chloride 103.8 mmol/L (98-107) 07/11/17 05:25 Carbon Dioxide 25 mmol/L (22-30) 07/11/17 05:25 Anion Gap 18 mmol/L 07/11/17 05:25 BUN 6 mg/dL (7-17) L 07/11/17 05:25 Creatinine 0.8 mg/dL (0.7-1.2) 07/11/17 05:25 Estimated GFR > 60 ml/min 07/11/17 05:25 BUN/Creatinine Ratio 8 % 07/11/17 05:25 Glucose 117 mg/dL (65-100) H 07/11/17 05:25 POC Glucose 115 (70-105) H 07/11/17 12:27 Hemoglobin A1c 5.3 % (4-6) 07/08/17 04:45 Calcium 9.3 mg/dL (8.4-10.2) 07/11/17 05:25 Magnesium 1.70 mg/dL (1.7-2.3) 07/11/17 05:25 Troponin T < 0.010 ng/mL (0.00-0.029) 07/08/17 04:45 Triglycerides 69 mg/dL (2-149) 07/09/17 06:55 Cholesterol 235 mg/dL (50-199) H 07/09/17 06:55 LDL Cholesterol Direct 138 mg/dL (50-130) H 07/09/17 06:55 HDL Cholesterol 84 mg/dL (40-59) H 07/09/17 06:55 Cholesterol/HDL Ratio 2.79 % 07/09/17 06:55
[2017-07-11] MEDS: MORPHINE IV PRN (14:46)
[2017-07-11] MEDS: CATAPRES PO SCH ×2 (14:46→21:28)
[2017-07-12] MEDS: MORPHINE IV PRN ×4 (02:39→23:41)
[2017-07-12 06:24] LABS: Anion Gap 15 mmol/L; BUN/Creatinine Ratio 8; Blood Urea Nitrogen 7 mg/dL (7-17); Calcium 9.3 mg/dL (8.4-10.2); Carbon Dioxide 29 mmol/L (22-30); Chloride 99.3 mmol/L (98-107); Glucose 109 mg/dL (65-100); Potassium 3.4 mmol/L (3.6-5.0); Sodium 140 mmol/L (137-145)
[2017-07-12] MEDS: APRESOLINE PO SCH ×3 (08:56→22:03)
[2017-07-12] MEDS ORDERED: POTASSIUM CHLORIDE FEEDTUBE ONE (09:57)
[2017-07-12] MEDS: POTASSIUM CHLORIDE FEEDTUBE SCH (10:36)
[2017-07-12] MEDS: ASPIRIN PO SCH (10:36)
[2017-07-12] MEDS: COLACE PO SCH ×2 (10:36→22:03)
[2017-07-12] MEDS: LOVENOX SUB-Q SCH (10:36)
[2017-07-12] MEDS: PEPCID PO SCH ×2 (10:36→22:03)
[2017-07-12] MEDS: HCTZ PO SCH (10:36)
[2017-07-12] MEDS: PLAVIX PO SCH (10:36)
[2017-07-12] MEDS: NORVASC PO SCH (10:37)
[2017-07-12] MEDS: CATAPRES PO SCH ×2 (10:38→22:02)
[2017-07-12] MEDS: ZOFRAN IV PRN (11:54)
--- NOTE | 2017-07-12 13:44 | Progress Note ---
Assessment and Plan Assessment and plan: Acute CVA - Patient came more than 4hrs after symptom onset and didn't get tPA - CT head no hemorrhage, no acute intracranial findings - Bilateral carotid Doppler <50% stenosis - MRI/MRA was done MRI :Acute/subacute nonhemorrhagic infarct involving the right internal capsule posterior limb. Moderate chronic white matter microangiopathic changes. 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 - Case management consult, PT/OT consult - Patient is on statin, will start on aspirin and plavix - We will control blood pressure - Neuro consult appreciated Hypertensive urgency - add clonidine today Hypokalemia - On potassium 40MEQ daily Patient was evaluated by speech - Recommended mechanical soft diet Tobacco abuse - Consulted for more than 10 minutes DVT prophylaxis - Patient is on Lovenox Disposition -Continue inpatient care -Patient pending acute rehab placement. History Interval history: Patient was seen and evaluated this morning, left-sided hemiplegia. No chest pain. Discussed the management plan with her son and daughter. Hospitalist Physical - Physical exam Narrative exam: Not in cardiopulmonary distress. The patient appeared well nourished and normally developed. Vital signs as documented. Head exam is unremarkable. No scleral icterus . Neck is without jugular venous distension, thyromegaly, or carotid bruits. Lungs are clear to auscultation. Cardiac exam reveals regular rate and Rhythm. First and second heart sounds normal. No murmurs, rubs or gallops. Abdominal exam reveals normal bowel sounds, no masses, no organomegaly and no aortic enlargement. Extremities left-sided hemiplegia. 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 - Constitutional Vitals: Temp Pulse Resp BP Pulse Ox 98.9 F 81 20 123/72 96 07/12/17 03:40 07/12/17 10:38 07/12/17 03:40 07/12/17 10:38 07/12/17 03:40 Results - Labs CBC & Chem 7: 07/11/17 05:25 07/12/17 05:27 Labs: Laboratory Last Values WBC 6.5 K/mm3 (4.5-11.0) 07/11/17 05:25 RBC 4.15 M/mm3 (3.65-5.03) 07/11/17 05:25 Hgb 12.5 gm/dl (10.1-14.3) 07/11/17 05:25 Hct 37.7 % (30.3-42.9) 07/11/17 05:25 MCV 91 fl (79-97) 07/11/17 05:25 MCH 30 pg (28-32) 07/11/17 05:25 MCHC 33 % (30-34) 07/11/17 05:25 RDW 14.2 % (13.2-15.2) 07/11/17 05:25 Plt Count 182 K/mm3 (140-440) 07/11/17 05:25 Lymph % (Auto) 31.0 % (13.4-35.0) 07/11/17 05:25 [place] % (Auto) 8.6 % (0.0-7.3) H 07/11/17 05:25 Eos % (Auto) 0.7 % (0.0-4.3) 07/11/17 05:25 Baso % (Auto) 0.8 % (0.0-1.8) 07/11/17 05:25 Lymph # 2.0 K/mm3 (1.2-5.4) 07/11/17 05:25 [place] # 0.6 K/mm3 (0.0-0.8) 07/11/17 05:25 Eos # 0.0 K/mm3 (0.0-0.4) 07/11/17 05:25 Baso # 0.1 K/mm3 (0.0-0.1) 07/11/17 05:25 Seg Neutrophils % 58.9 % (40.0-70.0) 07/11/17 05:25 Seg Neutrophils # 3.8 K/mm3 (1.8-7.7) 07/11/17 05:25 PT 12.7 Sec. (12.2-14.9) 07/08/17 04:45 INR 0.91 (0.87-1.13) 07/08/17 04:45 APTT 26.3 Sec. (24.2-36.6) 07/08/17 04:45 Thrombin Time 16.4 Sec. (15.1-19.6) 07/08/17 04:45 Sodium 140 mmol/L (137-145) 07/12/17 05:27 Potassium 3.4 mmol/L (3.6-5.0) L 07/12/17 05:27 Chloride 99.3 mmol/L (98-107) 07/12/17 05:27 Carbon Dioxide 29 mmol/L (22-30) 07/12/17 05:27 Anion Gap 15 mmol/L 07/12/17 05:27 BUN 7 mg/dL (7-17) 07/12/17 05:27 Creatinine 0.9 mg/dL (0.7-1.2) 07/12/17 05:27 Estimated GFR > 60 ml/min 07/12/17 05:27 BUN/Creatinine Ratio 8 % 07/12/17 05:27 Glucose 109 mg/dL (65-100) H 07/12/17 05:27 POC Glucose 115 (70-105) H 07/11/17 12:27 Hemoglobin A1c 5.3 % (4-6) 07/08/17 04:45 Calcium 9.3 mg/dL (8.4-10.2) 07/12/17 05:27 Magnesium 1.70 mg/dL (1.7-2.3) 07/11/17 05:25 Troponin T < 0.010 ng/mL (0.00-0.029) 07/08/17 04:45 Triglycerides 69 mg/dL (2-149) 07/09/17 06:55 Cholesterol 235 mg/dL (50-199) H 07/09/17 06:55 LDL Cholesterol Direct 138 mg/dL (50-130) H 07/09/17 06:55 HDL Cholesterol 84 mg/dL (40-59) H 07/09/17 06:55 Cholesterol/HDL Ratio 2.79 % 07/09/17 06:55
[2017-07-12] MEDS: PERCOCET 5/325 PO PRN (22:03)
[2017-07-13 08:20] LABS: Anion Gap 16 mmol/L; BUN/Creatinine Ratio 13; Blood Urea Nitrogen 12 mg/dL (7-17); Calcium 9.1 mg/dL (8.4-10.2); Carbon Dioxide 31 mmol/L (22-30); Chloride 95.7 mmol/L (98-107); Glucose 103 mg/dL (65-100); Potassium 3.5 mmol/L (3.6-5.0); Sodium 139 mmol/L (137-145)
[2017-07-13] MEDS: APRESOLINE PO SCH ×3 (08:22→21:07)
[2017-07-13] MEDS: ZOFRAN IV PRN ×2 (08:53→17:36)
[2017-07-13] MEDS: MORPHINE IV PRN (10:05)
[2017-07-13] MEDS: POTASSIUM CHLORIDE FEEDTUBE SCH (10:07)
[2017-07-13] MEDS: COLACE PO SCH ×2 (10:07→21:06)
[2017-07-13] MEDS: LOVENOX SUB-Q SCH (10:07)
[2017-07-13] MEDS: NORVASC PO SCH (10:08)
[2017-07-13] MEDS: CATAPRES PO SCH ×2 (10:09→21:07)
[2017-07-13] MEDS: PLAVIX PO SCH (10:09)
[2017-07-13] MEDS: HCTZ PO SCH (10:09)
[2017-07-13] MEDS: PEPCID PO SCH ×2 (10:09→21:06)
[2017-07-13] MEDS: ASPIRIN PO SCH (10:09)
--- NOTE | 2017-07-13 20:48 | Progress Note ---
Assessment and Plan Assessment and plan: Acute CVA-Internal capsule -lacunar stroke - Patient came more than 4hrs after symptom onset and didn't get tPA - CT head no hemorrhage, no acute intracranial findings - Bilateral carotid Doppler <50% stenosis - MRI/MRA was done MRI :Acute/subacute nonhemorrhagic infarct involving the right internal capsule posterior limb. Moderate chronic white matter microangiopathic changes. 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 - Case management consult, PT/OT consult - Patient is on statin, will start on aspirin and plavix - We will control blood pressure - Neuro consult appreciated Hypertensive urgency - add clonidine today Hypokalemia - On potassium 40MEQ daily Patient was evaluated by speech - Recommended mechanical soft diet Tobacco abuse - Counselling provided DVT prophylaxis - Patient is on Lovenox Disposition -Continue inpatient care -Patient pending acute rehab placement. History Interval history: Patient seen and examined in no acute distress. Remains with left sided hemiplegia. Denies any chest pain, nausea, vomiting, diarrhea. Hospitalist Physical - Physical exam Narrative exam: Not in cardiopulmonary distress. The patient appeared well nourished and normally developed. Vital signs as documented. Head, Ear, nose and throat- right facial droop, otherwise unremarkable. No scleral icterus . Neck is without jugular venous distension, thyromegaly, or carotid bruits. Lungs are clear to auscultation. Cardiac exam reveals regular rate and Rhythm. First and second heart sounds normal. No murmurs, rubs or gallops. Abdominal exam reveals normal bowel sounds, no masses, no organomegaly and no aortic enlargement. Extremities left-sided hemiplegia. 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: Left-sided hemiplegia - Constitutional Vitals: Temp Pulse Resp BP Pulse Ox 98.1 F 78 18 123/68 97 07/13/17 19:44 07/13/17 19:44 07/13/17 19:44 07/13/17 19:44 07/13/17 19:44 Results - Labs CBC & Chem 7: 07/11/17 05:25 07/13/17 06:57 Labs: Laboratory Last Values WBC 6.5 K/mm3 (4.5-11.0) 07/11/17 05:25 RBC 4.15 M/mm3 (3.65-5.03) 07/11/17 05:25 Hgb 12.5 gm/dl (10.1-14.3) 07/11/17 05:25 Hct 37.7 % (30.3-42.9) 07/11/17 05:25 MCV 91 fl (79-97) 07/11/17 05:25 MCH 30 pg (28-32) 07/11/17 05:25 MCHC 33 % (30-34) 07/11/17 05:25 RDW 14.2 % (13.2-15.2) 07/11/17 05:25 Plt Count 182 K/mm3 (140-440) 07/11/17 05:25 Lymph % (Auto) 31.0 % (13.4-35.0) 07/11/17 05:25 [place] % (Auto) 8.6 % (0.0-7.3) H 07/11/17 05:25 Eos % (Auto) 0.7 % (0.0-4.3) 07/11/17 05:25 Baso % (Auto) 0.8 % (0.0-1.8) 07/11/17 05:25 Lymph # 2.0 K/mm3 (1.2-5.4) 07/11/17 05:25 [place] # 0.6 K/mm3 (0.0-0.8) 07/11/17 05:25 Eos # 0.0 K/mm3 (0.0-0.4) 07/11/17 05:25 Baso # 0.1 K/mm3 (0.0-0.1) 07/11/17 05:25 Seg Neutrophils % 58.9 % (40.0-70.0) 07/11/17 05:25 Seg Neutrophils # 3.8 K/mm3 (1.8-7.7) 07/11/17 05:25 PT 12.7 Sec. (12.2-14.9) 07/08/17 04:45 INR 0.91 (0.87-1.13) 07/08/17 04:45 APTT 26.3 Sec. (24.2-36.6) 07/08/17 04:45 Thrombin Time 16.4 Sec. (15.1-19.6) 07/08/17 04:45 Sodium 139 mmol/L (137-145) 07/13/17 06:57 Potassium 3.5 mmol/L (3.6-5.0) L 07/13/17 06:57 Chloride 95.7 mmol/L (98-107) L 07/13/17 06:57 Carbon Dioxide 31 mmol/L (22-30) H 07/13/17 06:57 Anion Gap 16 mmol/L 07/13/17 06:57 BUN 12 mg/dL (7-17) 07/13/17 06:57 Creatinine 0.9 mg/dL (0.7-1.2) 07/13/17 06:57 Estimated GFR > 60 ml/min 07/13/17 06:57 BUN/Creatinine Ratio 13 % 07/13/17 06:57 Glucose 103 mg/dL (65-100) H 07/13/17 06:57 POC Glucose 110 (70-105) H 07/12/17 21:28 Hemoglobin A1c 5.3 % (4-6) 07/08/17 04:45 Calcium 9.1 mg/dL (8.4-10.2) 07/13/17 06:57 Magnesium 1.70 mg/dL (1.7-2.3) 07/11/17 05:25 Troponin T < 0.010 ng/mL (0.00-0.029) 07/08/17 04:45 Triglycerides 69 mg/dL (2-149) 07/09/17 06:55 Cholesterol 235 mg/dL (50-199) H 07/09/17 06:55 LDL Cholesterol Direct 138 mg/dL (50-130) H 07/09/17 06:55 HDL Cholesterol 84 mg/dL (40-59) H 07/09/17 06:55 Cholesterol/HDL Ratio 2.79 % 07/09/17 06:55
[2017-07-14] MEDS: MORPHINE IV PRN ×2 (08:46→22:18)
[2017-07-14] MEDS ORDERED: CEPHULAC PO PRN (10:31)
[2017-07-14] MEDS: COLACE PO SCH ×2 (10:56→22:06)
[2017-07-14] MEDS: ASPIRIN PO SCH (10:56)
[2017-07-14] MEDS: PLAVIX PO SCH (10:56)
[2017-07-14] MEDS: NORVASC PO SCH ×2 (10:57→11:46)
[2017-07-14] MEDS: HCTZ PO SCH (10:57)
[2017-07-14] MEDS: APRESOLINE PO SCH ×3 (10:57→22:06)
[2017-07-14] MEDS: PEPCID PO SCH ×2 (10:58→22:06)
[2017-07-14] MEDS: LOVENOX SUB-Q SCH (10:58)
[2017-07-14] MEDS: CATAPRES PO SCH ×2 (10:59→11:43)
[2017-07-14] MEDS ORDERED: APRESOLINE PO ONE (12:09)
[2017-07-14] MEDS: POTASSIUM CHLORIDE FEEDTUBE SCH (12:22)
--- NOTE | 2017-07-14 18:39 | Progress Note ---
Assessment and Plan Assessment and plan: Acute CVA-Internal capsule -lacunar stroke - Patient came more than 4hrs after symptom onset and didn't get tPA - CT head no hemorrhage, no acute intracranial findings - Bilateral carotid Doppler <50% stenosis - MRI/MRA was done MRI :Acute/subacute nonhemorrhagic infarct involving the right internal capsule posterior limb. Moderate chronic white matter microangiopathic changes. 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 - Case management consult, PT/OT consult - Patient is on statin, will start on aspirin and plavix - We will control blood pressure - Neuro consult appreciated Hypertensive urgency - add clonidine today Hypokalemia - On potassium 40MEQ daily Patient was evaluated by speech - Recommended mechanical soft diet Tobacco abuse - Counselling provided DVT prophylaxis - Patient is on Lovenox Disposition -Continue inpatient care -Patient pending acute rehab placement. History Interval history: Patient seen and examined in no acute distress. Remains with left sided hemiplegia. Denies any chest pain, nausea, vomiting, diarrhea. Hospitalist Physical - Physical exam Narrative exam: Not in cardiopulmonary distress. The patient appeared well nourished and normally developed. Vital signs as documented. Head, Ear, nose and throat- right facial droop, otherwise unremarkable. No scleral icterus . Neck is without jugular venous distension, thyromegaly, or carotid bruits. Lungs are clear to auscultation. Cardiac exam reveals regular rate and Rhythm. First and second heart sounds normal. No murmurs, rubs or gallops. Abdominal exam reveals normal bowel sounds, no masses, no organomegaly and no aortic enlargement. Extremities left-sided hemiplegia. 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: Left-sided hemiplegia - Constitutional Vitals: Temp Pulse Resp BP Pulse Ox 97.9 F 67 18 104/69 97 07/14/17 08:10 07/14/17 10:00 07/14/17 08:10 07/14/17 17:56 07/14/17 12:21 Results - Labs CBC & Chem 7: 07/11/17 05:25 07/13/17 06:57 Labs: Laboratory Last Values WBC 6.5 K/mm3 (4.5-11.0) 07/11/17 05:25 RBC 4.15 M/mm3 (3.65-5.03) 07/11/17 05:25 Hgb 12.5 gm/dl (10.1-14.3) 07/11/17 05:25 Hct 37.7 % (30.3-42.9) 07/11/17 05:25 MCV 91 fl (79-97) 07/11/17 05:25 MCH 30 pg (28-32) 07/11/17 05:25 MCHC 33 % (30-34) 07/11/17 05:25 RDW 14.2 % (13.2-15.2) 07/11/17 05:25 Plt Count 182 K/mm3 (140-440) 07/11/17 05:25 Lymph % (Auto) 31.0 % (13.4-35.0) 07/11/17 05:25 [facility] % (Auto) 8.6 % (0.0-7.3) H 07/11/17 05:25 Eos % (Auto) 0.7 % (0.0-4.3) 07/11/17 05:25 Baso % (Auto) 0.8 % (0.0-1.8) 07/11/17 05:25 Lymph # 2.0 K/mm3 (1.2-5.4) 07/11/17 05:25 [facility] # 0.6 K/mm3 (0.0-0.8) 07/11/17 05:25 Eos # 0.0 K/mm3 (0.0-0.4) 07/11/17 05:25 Baso # 0.1 K/mm3 (0.0-0.1) 07/11/17 05:25 Seg Neutrophils % 58.9 % (40.0-70.0) 07/11/17 05:25 Seg Neutrophils # 3.8 K/mm3 (1.8-7.7) 07/11/17 05:25 PT 12.7 Sec. (12.2-14.9) 07/08/17 04:45 INR 0.91 (0.87-1.13) 07/08/17 04:45 APTT 26.3 Sec. (24.2-36.6) 07/08/17 04:45 Thrombin Time 16.4 Sec. (15.1-19.6) 07/08/17 04:45 Sodium 139 mmol/L (137-145) 07/13/17 06:57 Potassium 3.5 mmol/L (3.6-5.0) L 07/13/17 06:57 Chloride 95.7 mmol/L (98-107) L 07/13/17 06:57 Carbon Dioxide 31 mmol/L (22-30) H 07/13/17 06:57 Anion Gap 16 mmol/L 07/13/17 06:57 BUN 12 mg/dL (7-17) 07/13/17 06:57 Creatinine 0.9 mg/dL (0.7-1.2) 07/13/17 06:57 Estimated GFR > 60 ml/min 07/13/17 06:57 BUN/Creatinine Ratio 13 % 07/13/17 06:57 Glucose 103 mg/dL (65-100) H 07/13/17 06:57 POC Glucose 110 (70-105) H 07/12/17 21:28 Hemoglobin A1c 5.3 % (4-6) 07/08/17 04:45 Calcium 9.1 mg/dL (8.4-10.2) 07/13/17 06:57 Magnesium 1.70 mg/dL (1.7-2.3) 07/11/17 05:25 Troponin T < 0.010 ng/mL (0.00-0.029) 07/08/17 04:45 Triglycerides 69 mg/dL (2-149) 07/09/17 06:55 Cholesterol 235 mg/dL (50-199) H 07/09/17 06:55 LDL Cholesterol Direct 138 mg/dL (50-130) H 07/09/17 06:55 HDL Cholesterol 84 mg/dL (40-59) H 07/09/17 06:55 Cholesterol/HDL Ratio 2.79 % 07/09/17 06:55
[2017-07-14] MEDS ORDERED: APRESOLINE PO SCH (20:00)
[2017-07-14] MEDS: ZOFRAN IV PRN (22:18)
[2017-07-15] MEDS: MORPHINE IV PRN ×2 (04:35→13:37)
[2017-07-15] MEDS: ZOFRAN IV PRN ×2 (04:35→13:39)
[2017-07-15] MEDS: APRESOLINE PO SCH ×3 (05:04→21:25)
[2017-07-15] MEDS: PERCOCET 5/325 PO PRN (08:44)
[2017-07-15] MEDS: COLACE PO SCH ×2 (10:54→21:25)
[2017-07-15] MEDS: PLAVIX PO SCH (10:54)
[2017-07-15] MEDS: HCTZ PO SCH (10:54)
[2017-07-15] MEDS: NORVASC PO SCH (10:54)
[2017-07-15] MEDS: PEPCID PO SCH ×2 (10:54→21:25)
[2017-07-15] MEDS: ASPIRIN PO SCH (10:54)
[2017-07-15] MEDS: LOVENOX SUB-Q SCH (10:55)
[2017-07-15] MEDS: POTASSIUM CHLORIDE FEEDTUBE SCH (10:55)
--- NOTE | 2017-07-15 12:20 | Progress Note ---
Assessment and Plan Assessment and plan: Acute CVA-Internal capsule -lacunar stroke - Patient came more than 4hrs after symptom onset and didn't get tPA - CT head no hemorrhage, no acute intracranial findings - Bilateral carotid Doppler <50% stenosis - MRI/MRA was done MRI :Acute/subacute nonhemorrhagic infarct involving the right internal capsule posterior limb. Moderate chronic white matter microangiopathic changes. 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 - Case management consult, PT/OT consult - Patient is on statin, will start on aspirin and plavix - We will control blood pressure - Neuro consult appreciated Hypertensive urgency - Clondine held yesterday due to hypotension, will restart at a a lower dose due to tachycardia Sinus Tachycardia -Restart catapress. Discussed with Nursing staff to monitor Hypokalemia - On potassium 40MEQ daily Patient was evaluated by speech - Recommended mechanical soft diet Tobacco abuse - Counselling provided DVT prophylaxis - Patient is on Lovenox Disposition -Continue inpatient care -Patient pending acute rehab placement. -D.w Case management, awaiting response, patients insurance status may make placement difficult History Interval history: Patient seen and examined in no acute distress. Remains with left sided hemiplegia. Denies any chest pain, nausea, vomiting, diarrhea. Reported tachycardia today. Hospitalist Physical - Physical exam Narrative exam: Not in cardiopulmonary distress. The patient appeared well nourished and normally developed. Vital signs as documented. Head, Ear, nose and throat- right facial droop, otherwise unremarkable. No scleral icterus . Neck is without jugular venous distension, thyromegaly, or carotid bruits. Lungs are clear to auscultation. Cardiac exam reveals Tachycardia but regular Rhythm. First and second heart sounds normal. No murmurs, rubs or gallops. Abdominal exam reveals normal bowel sounds, no masses, no organomegaly and no aortic enlargement. Extremities left-sided hemiplegia. 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 - Constitutional Vitals: Temp Pulse Resp BP Pulse Ox 98.9 F 115 H 18 137/65 97 07/15/17 07:52 07/15/17 10:54 07/15/17 10:00 07/15/17 10:54 07/15/17 07:52 Results - Labs CBC & Chem 7: 07/11/17 05:25 07/13/17 06:57 Labs: Laboratory Last Values WBC 6.5 K/mm3 (4.5-11.0) 07/11/17 05:25 RBC 4.15 M/mm3 (3.65-5.03) 07/11/17 05:25 Hgb 12.5 gm/dl (10.1-14.3) 07/11/17 05:25 Hct 37.7 % (30.3-42.9) 07/11/17 05:25 MCV 91 fl (79-97) 07/11/17 05:25 MCH 30 pg (28-32) 07/11/17 05:25 MCHC 33 % (30-34) 07/11/17 05:25 RDW 14.2 % (13.2-15.2) 07/11/17 05:25 Plt Count 182 K/mm3 (140-440) 07/11/17 05:25 Lymph % (Auto) 31.0 % (13.4-35.0) 07/11/17 05:25 [place] % (Auto) 8.6 % (0.0-7.3) H 07/11/17 05:25 Eos % (Auto) 0.7 % (0.0-4.3) 07/11/17 05:25 Baso % (Auto) 0.8 % (0.0-1.8) 07/11/17 05:25 Lymph # 2.0 K/mm3 (1.2-5.4) 07/11/17 05:25 [place] # 0.6 K/mm3 (0.0-0.8) 07/11/17 05:25 Eos # 0.0 K/mm3 (0.0-0.4) 07/11/17 05:25 Baso # 0.1 K/mm3 (0.0-0.1) 07/11/17 05:25 Seg Neutrophils % 58.9 % (40.0-70.0) 07/11/17 05:25 Seg Neutrophils # 3.8 K/mm3 (1.8-7.7) 07/11/17 05:25 PT 12.7 Sec. (12.2-14.9) 07/08/17 04:45 INR 0.91 (0.87-1.13) 07/08/17 04:45 APTT 26.3 Sec. (24.2-36.6) 07/08/17 04:45 Thrombin Time 16.4 Sec. (15.1-19.6) 07/08/17 04:45 Sodium 139 mmol/L (137-145) 07/13/17 06:57 Potassium 3.5 mmol/L (3.6-5.0) L 07/13/17 06:57 Chloride 95.7 mmol/L (98-107) L 07/13/17 06:57 Carbon Dioxide 31 mmol/L (22-30) H 07/13/17 06:57 Anion Gap 16 mmol/L 07/13/17 06:57 BUN 12 mg/dL (7-17) 07/13/17 06:57 Creatinine 0.9 mg/dL (0.7-1.2) 07/13/17 06:57 Estimated GFR > 60 ml/min 07/13/17 06:57 BUN/Creatinine Ratio 13 % 07/13/17 06:57 Glucose 103 mg/dL (65-100) H 07/13/17 06:57 POC Glucose 110 (70-105) H 07/12/17 21:28 Hemoglobin A1c 5.3 % (4-6) 07/08/17 04:45 Calcium 9.1 mg/dL (8.4-10.2) 07/13/17 06:57 Magnesium 1.70 mg/dL (1.7-2.3) 07/11/17 05:25 Troponin T < 0.010 ng/mL (0.00-0.029) 07/08/17 04:45 Triglycerides 69 mg/dL (2-149) 07/09/17 06:55 Cholesterol 235 mg/dL (50-199) H 07/09/17 06:55 LDL Cholesterol Direct 138 mg/dL (50-130) H 07/09/17 06:55 HDL Cholesterol 84 mg/dL (40-59) H 07/09/17 06:55 Cholesterol/HDL Ratio 2.79 % 07/09/17 06:55
--- NOTE | 2017-07-15 13:37 | Vascular Lab Report ---
CAROTID DUPLEX STUDY: RIGHT PSVEDV CCA PROX:[id number] CCA DIST:7124 ICA PROX:9525 ICA MID:6127 ICA DIST:7630 ECA: 115 VERT: 76 30 LEFT PSVEDV CCA PROX:8823 CCA DIST:6622 ICA PROX:5420 ICA MID:8742 ICA DIST:43512 ECA: 79 VERT: 57 22 REASON FOR EXAM: Stroke. COMMENTS ON THE RIGHT: Doppler frequency analysis is consistent with 16 to 49 percent diameter reduction of the internal carotid artery. A small amount of eccentric plaque is seen in the bulb. The common carotid artery is patent. The external carotid artery is patent. The vertebral artery has antegrade flow. COMMENTS ON THE LEFT: Doppler frequency analysis is consistent with 16 to 49 percent diameter reduction of the internal carotid artery. Minimal amount of plaque is seen. The common carotid artery is patent. The external carotid artery is patent. The vertebral artery has antegrade flow. IMPRESSION: Less than 50% diameter reduction in the internal carotid arteries bilaterally. Consider repeat carotid artery duplex in 12 months.
[2017-07-15] MEDS: CATAPRES PO SCH ×2 (13:38→21:26)
[2017-07-16] MEDS: MORPHINE IV PRN (00:12)
[2017-07-16] MEDS ORDERED: MORPHINE IV PRN (03:01)
--- NOTE | 2017-07-16 03:04 | Event Note ---
was called by RN that patient is reporting CP and productive cough with thick brown sputum differentials include PNA, ACS or angina ordered chest pain protocol, EKG, CXR troponins and pain meds
[2017-07-16] MEDS: APRESOLINE PO SCH (05:37)
--- NOTE | 2017-07-16 07:30 | XRay Report ---
CHEST XRAY, 2 VIEWS: History: . Findings: There is mild cardiomegaly. Pulmonary vessels are within normal limits. The lungs are clear and fully expanded. No infiltrate, pleural effusion or pneumothorax. Normal thoracic cage. IMPRESSION: Cardiomegaly.
--- NOTE | 2017-07-16 09:17 | Discharge Summary ---
Providers - Providers Date of Admission: 07/08/17 05:22 Attending physician: ÁLVARO BRITO MD 07/08/17 05:22 Consult to Physician [CONS] Routine Consulting Provider: SU HIGGINBOTHAM Reason For Exam: CVA Place consult to:: neuro Notified:: n Comment:: added to list 07/08/17 08:01 Consult to Case Management [CONS] Routine Services Needed at Discharge: Physical Therapy Occupational Therapy Integration Manager Home Health Services Notified:: showcase maker Consult to Dietitian/Nutrition [CONS] Routine Physician Instructions: Reason For Exam: Reason for Consult: Nutrition Recommendations Reason for Consult: Diet education Occupational Therapy Evaluate and Treat [CONS] Routine Comment: Reason For Exam: Neuro deficits Physical Therapy Evaluation and Treat [CONS] Routine Comment: Reason For Exam: Neuro deficits 07/08/17 08:03 Speech Therapy Evaluation and Treat [CONS] Routine Reason For Exam: swallow eval 07/08/17 19:18 Speech Therapy Evaluation and Treat [CONS] Routine Reason For Exam: acute stroke. left facial paralysis 07/14/17 05:32 Consult to Wound/ET Nurse [CONS] Routine Reason For Exam: wound eval (sacrum) Primary care physician: CONSTRUCTION CONTRACTOR Hospitalization Reason for admission: CVA Condition: Stable Hospital course: 66-year-old -[place] female with past medical history significant for hypertension not on any medication, abuse, marijuana abuse was presented to the emergency department for the complaints of left-sided weakness, slurred speech that started more than 4 and half hours before presentation. Patient's blood failure at presentation was 218/120. Patient was alert and oriented and able to protect her airways. Left-sided hemiplegia. No seizure episode. CT head done and negative for acute intracranial hemorrhage. Patient was consulted to be L sided TPA window. Imaging studies confirmed and internal capsule lacunar stroke. Patient was seen by neurology recommendation for antiplatelets and also statin therapy and blood pressure control. Patient was also noted to be sinus tachycardic which was confirmed on EKG. Echocardiogram showed diastolic dysfunction. Outpatient follow-up with cardiology as recommended. Patient will be discharged counseling was provided about blood pressure control and also counseling was provided on marijuana use and tobacco use. Patient verbalized understanding. Electrolytes replaced and rehabilitation was recommended. Acute CVA-Internal capsule -lacunar stroke * MRI :Acute/subacute nonhemorrhagic infarct involving the right internal capsule posterior limb. Moderate chronic white matter microangiopathic changes. Hypertensive urgency Sinus Tachycardia Left sided hemiplegia secondary to CVA Hypokalemia Tobacco abuse Disposition: [id number]/[place]-[facility] CERT Time spent for discharge: 35 mins Core Measure Documentation - Palliative Care Palliative Care/ Comfort Measures: Not Applicable - Core Measures Any of the following diagnoses?: stroke - VTE Discharge Requirements Deep Vein Thrombosis/Pulmonary Embolism Present on Admission: No - Stroke Discharge Requirements Statin for LDL = or >70 mg/dl on DC: Yes Anticoag for atrial fib/atrial flutter: Not Applicable Antithrombotic for ischemic stroke: Yes Exam - Physical Exam Narrative exam: Not in cardiopulmonary distress. The patient appeared well nourished and normally developed. Vital signs as documented. Head, Ear, nose and throat- right facial droop, otherwise unremarkable. No scleral icterus . Neck is without jugular venous distension, thyromegaly, or carotid bruits. Lungs are clear to auscultation. Cardiac exam reveals Tachycardia but regular Rhythm. First and second heart sounds normal. No murmurs, rubs or gallops. Abdominal exam reveals normal bowel sounds, no masses, no organomegaly and no aortic enlargement. Extremities left-sided hemiplegia. 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 - Constitutional Vitals: Temp Pulse Resp BP Pulse Ox 98.3 F 102 H 18 112/73 95 07/16/17 07:23 07/16/17 07:23 07/16/17 07:23 07/16/17 07:23 07/16/17 07:23 Plan Activity: advance as tolerated, fall precautions Diet: low cholesterol Special Instructions: record daily BP diary, physical therapy, occupational therapy Follow up with: PRIMARY CARE, [Primary Care Provider] - 7 Days Prescriptions: AtorvaSTATin [Lipitor] 40 mg PO QHS #30 tablet Acyclovir [Acyclovir Ointment] 1 applicatio TP 5XD #1 tube amLODIPine [Norvasc] 10 mg PO QDAY #30 tablet cloNIDine [Catapres] 0.1 mg PO Q12HR #60 tablet Clopidogrel [Plavix] 75 mg PO QDAY #30 tablet Clotrimazole [Clotrimazole AF] 28 gm TP BID #1 cream..g. Docusate Sodium [Colace CAP] 100 mg PO BID #30 capsule Famotidine [Pepcid] 20 mg PO BID #30 tablet hydrALAZINE [Apresoline TAB] 50 mg PO Q8HR #90 tablet Hydrochlorothiazide [HCTZ] 25 mg PO QDAY #30 tablet oxyCODONE /ACETAMINOPHEN [Percocet 5/325 mg] 1 tab PO Q6H PRN #14 tablet PRN Reason: Pain, Moderate (4-6)
[2017-07-16] MEDS: CATAPRES PO SCH (10:04)
[2017-07-16] MEDS: PLAVIX PO SCH (10:04)
[2017-07-16] MEDS: ASPIRIN PO SCH (10:04)
[2017-07-16] MEDS: COLACE PO SCH (10:05)
[2017-07-16] MEDS: HCTZ PO SCH (10:05)
[2017-07-16] MEDS: PEPCID PO SCH (10:05)
[2017-07-16] MEDS: NORVASC PO SCH (10:06)
[2017-07-16] MEDS: LOVENOX SUB-Q SCH (10:06)
[2017-07-16] MEDS: POTASSIUM CHLORIDE FEEDTUBE SCH (10:08)
[2017-07-16 12:40] VITALS: BP 116/77
== END 2017-07-16 13:38 | DRG 65 ==
LOC: EDBD → EDSEX → ED 03:28 → 4A 05:22 → 2B-ACE 07-14 19:44
PROVIDERS: ADMIT Internal Medicine; ATTEND Internal Medicine
DX: I63.231 Cerebral infarction due to unspecified occlusion or stenosis of right carotid arteries (principal); G81.94 Hemiplegia, unspecified affecting left nondominant side; I16.0 Hypertensive urgency; E87.6 Hypokalemia; R00.0 Tachycardia, unspecified; I10 Essential (primary) hypertension; E11.9 Type 2 diabetes mellitus without complications; F17.210 Nicotine dependence, cigarettes, uncomplicated; I67.1 Cerebral aneurysm, nonruptured; F12.10 Cannabis abuse, uncomplicated; Z90.710 Acquired absence of both cervix and uterus; Z79.899 Other long term (current) drug therapy; Z82.49 Family history of ischemic heart disease and other diseases of the circulatory system; Z83.3 Family history of diabetes mellitus; Z88.1 Allergy status to other antibiotic agents; Z82.3 Family history of stroke; Z71.6 Tobacco abuse counseling
CPT/HCPCS: 36415; 70450; 70496; 70498; 70544; 70551; 71020; 72125; 80048; 80061; 82962; 83036; 83735; 84484; 85025; 85610; 85670; 85730; 93005; 93010; 93306; 93880; 96374; A9270-GY; J0360; J1650; J2270; J2405; J7042; Q9967

== ENCOUNTER 2017-08-30 10:04 | Emergency (ER) | payer MEDICARE ==
--- NOTE | 2017-08-30 13:33 | Emergency Department Report ---
Blank Doc - Documentation Documentation: Patient is a 66-year-old female past history of stroke who presents with headache that's been going on for the last couple days patient's friend by daughter who is concerned that something "may be going on. ". Patient states that she is concerned and "infection may be going on. I will workup patient for subdural bleed and electrolyte abnormaliyt . I will get CT head, CBC CMP labs and blood coags.
--- NOTE | 2017-08-30 14:00 | Cat Scan Report ---
CT HEAD WITHOUT CONTRAST: 08/30/17 10:04:00 CLINICAL: Headache. TECHNIQUE: 2.5-mm noncontrast scans. COMPARISON:07/08/17 FINDINGS: Stable mild global cortical atrophy. A large right basal ganglia chronic lacunar infarct is new compared to the last exam and measures 1.6 x 0.8 cm. Stable bilateral periventricular white matter hypodensities and bilateral basal ganglia hypodensities.No new suspicious hypodensity. No mass or mass effect. No hemorrhage, edema or extra-axial collection. The sinuses are clear. Normal orbits and soft tissues. The calvarium and skull base are intact. IMPRESSION: No acute change. However, a chronic right basal ganglia lacunar infarct is new compared to last exam.
--- NOTE | 2017-08-30 14:35 | Emergency Department Report ---
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 Week ago go she was given a Z-Easton for a cough now she's having yellow cough. She denies new focal neuro deficits denies any sudden onset of exertional headache denies any calf pain or swelling no shortness of breath no fever no neck pain no stiffness no rash . + positive intermittent yellowish cough no chest pain or shortness of breath, no hemoptyxsis n o shaking chills no wt loss - Related Data Previous Rx's Medication Instructions Recorded Last Taken Type Acyclovir [Acyclovir Ointment] 1 applicatio TP 5XD #1 tube 07/16/17 Unknown Rx AtorvaSTATin [Lipitor] 40 mg PO QHS #30 tablet 07/16/17 Unknown Rx Clopidogrel [Plavix] 75 mg PO QDAY #30 tablet 07/16/17 Unknown Rx Clotrimazole [Clotrimazole AF] 28 gm TP BID #1 cream..g. 07/16/17 Unknown Rx Docusate Sodium [Colace CAP] 100 mg PO BID #30 capsule 07/16/17 Unknown Rx Famotidine [Pepcid] 20 mg PO BID #30 tablet 07/16/17 Unknown Rx Hydrochlorothiazide [HCTZ] 25 mg PO QDAY #30 tablet 07/16/17 Unknown Rx amLODIPine [Norvasc] 10 mg PO QDAY #30 tablet 07/16/17 Unknown Rx cloNIDine [Catapres] 0.1 mg PO Q12HR #60 tablet 07/16/17 Unknown Rx hydrALAZINE [Apresoline TAB] 50 mg PO Q8HR #90 tablet 07/16/17 Unknown Rx oxyCODONE /ACETAMINOPHEN [Percocet 1 tab PO Q6H PRN #14 tablet 07/16/17 Unknown Rx 5/325 mg] Doxycycline [Vibramycin CAP] 100 mg PO Q12HR #14 capsule 08/30/17 Unknown Rx Oseltamivir [Tamiflu] 75 mg PO BID #10 cap 08/30/17 Unknown Rx Allergies Allergy/AdvReac Type Severity Reaction Status Date / Time amoxicillin [From Amoxil] Allergy Unknown Verified 07/08/17 04:19 ED Review of Systems ROS: Stated complaint: HEADACHE/CONGESTION Other details as noted in HPI Comment: All other systems reviewed and negative Constitutional: no symptoms reported. denies: diaphoresis, fever, malaise ENT: denies: ear pain, throat pain Respiratory: cough. denies: orthopnea, shortness of breath, SOB with exertion, SOB at rest, stridor, wheezing Cardiovascular: denies: chest pain, palpitations, dyspnea on exertion, orthopnea , edema, syncope Gastrointestinal: denies: abdominal pain, nausea, vomiting, diarrhea, constipation, hematemesis, melena, hematochezia Genitourinary: denies: urgency, dysuria, frequency, hematuria, discharge, abnormal menses Neurological: headache. denies: weakness, numbness, paresthesias, abnormal gait , vertigo Psychiatric: denies: anxiety, depression ED Past Medical Hx - Past Medical History Previous Medical History?: Yes Hx Hypertension: Yes Hx CVA: Yes (left sided weakness) Hx Diabetes: Yes Additional medical history: hypoglycemia - Surgical History Past Surgical History?: Yes Hx Cholecystectomy: Yes Additional Surgical History: exploratory in s. x 1 1993 - Social History Smoking Status: Former Smoker Substance Use Type: Marijuana - Medications Home Medications: Home Medications Medication Instructions Recorded Confirmed Last Taken Type Acyclovir [Acyclovir Ointment] 1 applicatio TP 5XD #1 tube 07/16/17 Unknown Rx AtorvaSTATin [Lipitor] 40 mg PO QHS #30 tablet 07/16/17 Unknown Rx Clopidogrel [Plavix] 75 mg PO QDAY #30 tablet 07/16/17 Unknown Rx Clotrimazole [Clotrimazole AF] 28 gm TP BID #1 cream..g. 07/16/17 Unknown Rx Docusate Sodium [Colace CAP] 100 mg PO BID #30 capsule 07/16/17 Unknown Rx Famotidine [Pepcid] 20 mg PO BID #30 tablet 07/16/17 Unknown Rx Hydrochlorothiazide [HCTZ] 25 mg PO QDAY #30 tablet 07/16/17 Unknown Rx amLODIPine [Norvasc] 10 mg PO QDAY #30 tablet 07/16/17 Unknown Rx cloNIDine [Catapres] 0.1 mg PO Q12HR #60 tablet 07/16/17 Unknown Rx hydrALAZINE [Apresoline TAB] 50 mg PO Q8HR #90 tablet 07/16/17 Unknown Rx oxyCODONE /ACETAMINOPHEN [Percocet 1 tab PO Q6H PRN #14 tablet 07/16/17 Unknown Rx 5/325 mg] Doxycycline [Vibramycin CAP] 100 mg PO Q12HR #14 capsule 08/30/17 Unknown Rx Oseltamivir [Tamiflu] 75 mg PO BID #10 cap 08/30/17 Unknown Rx ED Physical Exam - General Limitations: No Limitations General appearance: alert, in no apparent distress, anxious - Head Head exam: Present: atraumatic, normocephalic - Eye Eye exam: Present: normal appearance, PERRL, EOMI, other (old left sided facial droop and mild dysarthria) - Neck Neck exam: Present: normal inspection. Absent: tenderness, meningismus - Respiratory Respiratory exam: Present: normal lung sounds bilaterally. Absent: respiratory distress, wheezes, rales, rhonchi, stridor, chest wall tenderness, accessory muscle use, decreased breath sounds, prolonged expiratory - Cardiovascular Cardiovascular Exam: Present: regular rate, normal rhythm, normal heart sounds - GI/Abdominal GI/Abdominal exam: Present: soft. Absent: distended, tenderness, guarding, rebound, rigid, mass, pulsatile mass - Extremities Exam Extremities exam: Present: normal inspection, normal capillary refill. Absent: pedal edema, joint swelling, calf tenderness - Back Exam Back exam: Present: normal inspection. Absent: tenderness, CVA tenderness (L) - Neurological Exam Neurological exam: Present: alert, oriented X3, other (old left side hemiparesis ) ED Course Vital Signs 08/30/17 10:17 Temperature 97.7 F Pulse Rate 52 L Respiratory 20 Rate Blood Pressure 106/66 O2 Sat by Pulse 99 Oximetry - Reevaluation(s) Reevaluation #1: 08/30/17 16:44 No new focal deficits headache improved with Percocet patient also being evaluated for possible productive sputum status post Z-Easton ED Medical Decision Making - Lab Data Result diagrams: 08/30/17 14:44 - Medical Decision Making Headache resolved in ED CT shows no acute process, does have evidence of old CVA but no acute, case was discussed with Dr. Chawla given the fact she is on Plavix with a headache for possible MRI however he felt this was likely to be revealing given the fact she is known deficits and no new deficits and a non- con head CT was within normal limits except for previous therefore we will discharge patient given the fact that there are no new deficits and headache is resolved vital signs are stable she is nontoxic ,chest x-ray is negative per my read ,she does have mild renal insufficiency this will be referred to her regular family doctor for further evaluation, no evidence of acute emergent process that will require further testing or admission at this time is appreciated, patient is therefore stable for outpatient follow-up Critical care attestation.: If time is entered above; I have spent that time in minutes in the direct care of this critically ill patient, excluding procedure time. ED Disposition Clinical Impression: Head ache, Bronchitis Disposition: - TO HOME OR SELFCARE Is pt being admited?: No Condition: Stable Instructions: Acute Bronchitis (ED), Tension Headache (ED) Additional Instructions: Return if new or alarming symptoms see her doctor in 2 days, [id number] Tylenol as needed as directed Prescriptions: Doxycycline [Vibramycin CAP] 100 mg PO Q12HR #14 capsule Oseltamivir [Tamiflu] 75 mg PO BID #10 cap Referrals: PRIMARY CARE, [Primary Care Provider] - 3-5 Days Time of Disposition: 16:48
[2017-08-30] MEDS ORDERED: PERCOCET 5/325 PO ONE (14:36)
[2017-08-30 15:31] LABS: Calcium 9.4 mg/dL (8.4-10.2)
[2017-08-30 17:20] VITALS: BP 109/70
--- NOTE | 2017-08-30 17:22 | XRay Report ---
FINAL REPORT EXAM: XR CHEST ROUTINE 2V HISTORY: yellow cough TECHNIQUE: Two view chest PA and lateral PRIORS: Comparison is dated July 16, 2017 FINDINGS: Cardiac and mediastinal contours are unremarkable. No focal pulmonary infiltrate is identified. No pleural fluid collection seen. Pulmonary vasculature is unremarkable. No change from prior exam IMPRESSION: Negative two-view chest
== END 2017-08-30 17:27 | disposition home or self-care (01) ==
LOC: ED 10:04
DX: R51 Headache (principal); J40 Bronchitis, not specified as acute or chronic; I10 Essential (primary) hypertension; Z86.73 Personal history of transient ischemic attack (TIA), and cerebral infarction without residual deficits; E11.9 Type 2 diabetes mellitus without complications; E11.649 Type 2 diabetes mellitus with hypoglycemia without coma; Z87.891 Personal history of nicotine dependence; F12.10 Cannabis abuse, uncomplicated; Z88.1 Allergy status to other antibiotic agents
CPT/HCPCS: 36415; 70450; 71046; 80053; 84484